=== PATIENT | female | born 1990 | race Caucasian/White ===

== ENCOUNTER → 2017-04-25 13:31 | Outpatient (CLI) | payer MEDICAID, SELFPAY ==
--- NOTE | 2017-04-25 13:35 | US_ITS ---
STUDY: ULTRASOUND OF THE FEMALE PELVIS - COMPLETE REASON FOR EXAM: Female, 26 years old. Pelvic pain. LMP: March 25, 2017. TECHNIQUE: Transabdominal and Transvaginal TECHNICAL QUALITY: Adequate. COMPARISON: None. FINDINGS: The uterus is anteverted and is in a midline position. The uterus measures 6.9 cm x 4.8 cm x 4.4 cm. Normal uterine cervix. The endometrium measures 4.4 mm in thickness, and is heterogeneous (striated). There is no demonstrated endometrial mass. There is evidence of a 1.4 cm x 1.3 cm x 0.7 cm fibroid. I.U.D. - The patient does not have an I.U.D. The right ovary is visualized. The right ovary measures 2.6 cm x 3.2 cm x 2.2 cm. A dominant follicle is seen in the right ovary measuring 8 mm. There is no visualized right adnexal mass or complex lesion. There is normal arterial and normal venous vascularity. The left ovary is visualized. The left ovary measures 3.8 cm x 3.2 cm x 1.7 cm. There is no left ovarian cyst or ovarian mass. There is no visualized left adnexal mass or complex lesion. There is normal arterial and normal venous vascularity. There is no fluid in the cul-de-sac. US/Pelvic (Non ) IMPRESSION: Small uterine fibroid. Electronically Signed: Gilberto Hernandez MD at 15:34 EST Tel [phone], Service support ,
--- NOTE | 2017-04-25 13:35 | US_ITS ---
STUDY: ULTRASOUND OF THE FEMALE PELVIS - COMPLETE REASON FOR EXAM: Female, 26 years old. Pelvic pain. LMP: March 25, 2017. TECHNIQUE: Transabdominal and Transvaginal TECHNICAL QUALITY: Adequate. COMPARISON: None. FINDINGS: The uterus is anteverted and is in a midline position. The uterus measures 6.9 cm x 4.8 cm x 4.4 cm. Normal uterine cervix. The endometrium measures 4.4 mm in thickness, and is heterogeneous (striated). There is no demonstrated endometrial mass. There is evidence of a 1.4 cm x 1.3 cm x 0.7 cm fibroid. I.U.D. - The patient does not have an I.U.D. The right ovary is visualized. The right ovary measures 2.6 cm x 3.2 cm x 2.2 cm. A dominant follicle is seen in the right ovary measuring 8 mm. There is no visualized right adnexal mass or complex lesion. There is normal arterial and normal venous vascularity. The left ovary is visualized. The left ovary measures 3.8 cm x 3.2 cm x 1.7 cm. There is no left ovarian cyst or ovarian mass. There is no visualized left adnexal mass or complex lesion. There is normal arterial and normal venous vascularity. There is no fluid in the cul-de-sac. US/Transvaginal Non- IMPRESSION: Small uterine fibroid. Electronically Signed: Gilberto Hernandez MD at 15:34 EST Tel [phone], Service support ,
== END ==
PROVIDERS: Visit Provider Nurse Practitioner Women's Health
DX: R10.2 Pelvic and perineal pain (principal)
CPT/HCPCS: 76830; 76856; 87491; 87591; 93976

== ENCOUNTER → 2017-04-25 17:57 | Outpatient (CLI) | payer MEDICAID, SELFPAY ==
[2017-04-26 14:33] LABS: Chlamydia Trachomatis by PCR Negative (Negative); Neisserai gonorrhoeae by PCR Negative (Negative); Probe Check PASS; Sample Adequacy Control PASS; Specimen Processing Control PASS
== END ==
PROVIDERS: Visit Provider Nurse Practitioner Women's Health
DX: R10.2 Pelvic and perineal pain (principal)
CPT/HCPCS: 87491; 87591

== ENCOUNTER 2017-08-16 02:43 | Emergency (ER) | payer MEDICAID, SELFPAY ==
[2017-08-16 02:45] VITALS: BP 120/75; PULSE 76; RESP 17; TEMP 36.6; O2SAT 100; BMI 28.0
--- NOTE | 2017-08-16 02:54 | RAD_ITS ---
STUDY: X-RAY - THORACIC SPINE REASON FOR EXAM: Female, 27 years old. Mid and lower thoracic pain after twisting. TECHNIQUE: 3 view(s) of the thoracic spine were obtained. COMPARISON: None. FINDINGS: Normal kyphosis of the thoracic spine. There is no substantial scoliosis. Normal thoracic vertebrae and endplates. Normal disc space heights. The soft tissue structures are unremarkable. RAD/Thoracic Spine 3 Views IMPRESSION: Normal x-ray examination of the thoracic spine. Electronically Signed: Erick Mondragon MD at 3:44 EDT , Service support ,
[2017-08-16] MEDS: Lidocaine 5% Patch 1 PATCH TOPICAL (03:10)
[2017-08-16] MEDS: Ketorolac 30 MG/ML Syringe IM (03:10)
--- NOTE | 2017-08-16 04:01 | ED.DCSUM_ITS ---
- ER Visit Summary Date of Service: 08/16/17 Chief Complaint: Back pain History of Present Illness: The patient is a 27 F presenting for evaluation secondary back pain. Patient states that she had a relatively sudden onset of back pain this evening. She states that it came after an entire evening of playing horse with her young children. She states they were sitting on her back and she was going around on her hands and knees all night and she had a sudden onset of thoracic pain. This does not radiate, is not associated with any sort of bowel or bladder incontinence no fevers no history of IV drug use or recent surgeries. Review of systems otherwise negative. Physical Examination: Vitals: Within normal limits General: Well-nourished well-developed no acute distress Head: Normocephalic atraumatic ENT: Moist mucous membranes Neck: Supple no JVD Cardiovascular: Heart regular rate and rhythm no murmurs Respiratory: Respirations nondistressed, lung sounds clear to auscultation bilaterally Abdominal: Soft, nontender, nondistended, normal bowel sounds, no evidence of abdominal masses or pulsatile mass Back: Normal to inspection, tenderness in the midline of the lower thoracic spine with no step-offs, straight leg raise negative bilaterally Extremities: Nontender, nonedematous, 2+ radial and PT pulses bilaterally symmetric Skin: Normal color no rash Neuro: 5/5 strength hip flexion, knee flexion, knee extension, dorsiflexion, plantarflexion, EHL. Sensation intact over all dermatomes of the lower extremities bilaterally, 2+ patellar and Achilles reflexes bilaterally symmetric , negative clonus bilaterally Test Results: Thoracic x-rays negative per radiology Emergency Department Course and Treatment: Patient presented for evaluation secondary to back pain. X-rays were obtained and were found to be negative. Patient has no red flag signs or symptoms of do not believe the neuro imaging is necessary. She was treated with Toradol and lidocaine and had improvement of her pain. At this point I believe the patient can safely be discharged with a course of Naprosyn and Flexeril. She will follow-up with primary care. Disposition: Discharge Impression: 1. Thoracic back strain This note was generated with [employer] dictation software. It may contain incorrect words, spelling, and punctuation that were not noted in review of the chart prior to signing ED Disposition - Plan for ED Patient: Disposition: Home or Assisted Living Chief Complaint: Back Diagnosis: Thoracic myofascial strain Instructions: ED Sprain Strain Lumbar Prescriptions: Naproxen [Naprosyn] 500 mg PO BID PRN #20 tab Cyclobenzaprine [Flexeril] 10 mg PO TID PRN #20 tab PRN Reason: Muscle Spasm Referrals: Jd Thornton MD [Primary Care Provider] - 10-14 Days if not better
[2017-08-16 04:08] VITALS: BP 109/73; PULSE 65; RESP 17; O2SAT 100
== END 2017-08-16 04:10 | disposition home or self-care (01) ==
PROVIDERS: Emergency Provider Emergency Medicine; Family Provider Internal Medicine; PCP Internal Medicine
DX: S29.012A Strain of muscle and tendon of back wall of thorax, initial encounter (principal); Z79.899 Other long term (current) drug therapy; X58.XXXA Exposure to other specified factors, initial encounter; Y93.89 Activity, other specified; Y92.008 Other place in unspecified non-institutional (private) residence as the place of occurrence of the external cause; Y99.8 Other external cause status
CPT/HCPCS: 72072; 96372; 99282

== ENCOUNTER 2017-11-21 19:16 | Emergency (ER) | payer MEDICAID, SELFPAY ==
[2017-11-21 19:17] VITALS: BP 134/79; PULSE 84; RESP 16; TEMP 37.1; O2SAT 100; BMI 27.1
[2017-11-21 19:29] VITALS: BP 119/81; PULSE 71; RESP 24; O2SAT 99
--- NOTE | 2017-11-21 19:45 | EKG12_ITS ---
Test Reason : CP Blood Pressure : / mmHG Vent. Rate : 070 BPM Atrial Rate : 070 BPM P-R Int : 142 ms QRS Dur : 076 ms QT Int : 394 ms P-R-T Axes : 065 051 053 degrees QTc Int : 425 ms Normal sinus rhythm Normal ECG Confirmed by PAMELA LOW, ANGIE ([id number]), news videotape editor SATISH DARNELL ([id number]) on 11/23/2017 1:14:14 PM Referred By: CESAR Confirmed By:ANGIE SANTIAGO MD
--- NOTE | 2017-11-21 19:45 | RAD_ITS ---
STUDY: X-RAY CHEST REASON FOR EXAM: Female, 27 years old. Chest pain TECHNIQUE: Single frontal view COMPARISON: April 19, 2016 FINDINGS: The lungs are clear and expanded. There is no demonstrated pleural abnormality. Normal size heart. Normal mediastinum and janee. Normal visualized pulmonary arteries. Normal visualized aortic arch and descending thoracic aorta. Normal visualized thoracic spine. Normal visualized ribs, clavicles, and shoulders. There is no demonstrated abnormality of the visualized soft tissue structures of the upper abdomen. RAD/Chest 1 View (Portable) IMPRESSION: Normal x-ray examination of the chest. Electronically Signed: Marcio Jean DO at 20:00 EDT Tel [phone], Service support ,
[2017-11-21 20:01] LABS: Absolute Lymphocyte Count 3.03 X10^3/ul (0.83-4.51); Absolute Neutrophil Count 7.9 X10^3/uL (2.0-7.7); Basophil# 0.02 X10^3/uL; Basophil% 0.2 % (0-1); Eosinophil# 0.14 X10^3/uL; Eosinophils% 1.2 % (0-5); Hematocrit 41.7 % (37-47); Hemoglobin 14.3 g/dl (12.0-15.0); Lymphocyte # 3.03 X10^3/ul (4.0); Lymphocyte % 25.6 % (19-41); Mean Corp Hgb Conc 34.3 g/gl (32-36); Mean Corpuscular Hgb 29.8 pg (27.0-32.0); Mean Corpuscular Volume 86.9 fL (81-99); Mean Platelet Vol. 9.9 fl (6.2-12.0); Monocyte# 0.77 X10^3/uL; Monocyte% 6.5 % (0-10); Neutrophil # 7.87 X10^3/uL (2.7-7.7); Neutrophil % 66.3 % (47-70); Platelet Count 271 K/mm3 (150-450); RBC Distribution Width CV 13.1 % (11.6-14.6); RBC Distribution Width SD 40.6 fl (35.1-43.9); White Blood Count 11.9 K/mm3 (4.4-11.0)
[2017-11-21 20:08] LABS: POSITIVE COUNT NO; POSITIVE DIFFERENTIAL NO; POSITIVE MORPHOLOGY NO
[2017-11-21 20:18] VITALS: O2SAT 100
[2017-11-21 20:20] LABS: Anion Gap 9 (5-15); BUN 8 mg/dL (7-18); BUN/Creat Ratio 9.4 RATIO (10-20); Chloride 105 mmol/L (98-107); Creatinine, Serum 0.85 mg/dL (0.55-1.02); EST Glomerular Filtration Rate 84 mL/min (>60); Est Glom Filt Rate - Afr Amer 102 mL/min (>60); Estimated Creatinine Clearance 77.93 ml/min; Glucose 87 mg/dL (74-106); Potassium 3.8 mmol/L (3.5-5.1); Sodium Level 138 mmol/L (136-145)
[2017-11-21 20:22] VITALS: BP 104/76; PULSE 64; RESP 16; O2SAT 100
[2017-11-21] MEDS: Aspirin 81 MG TAB.CHEW 324 MG PO (20:23)
[2017-11-21 20:29] LABS: D-Dimer Quantitative (DVT/PE) < 0.27 FEU/ug/m (0.27-0.49)
[2017-11-21 20:33] LABS: Pregnancy, Serum, hCG Quali. NEGATIVE Negative (0-9 Nonpreg)
--- NOTE | 2017-11-21 21:04 | ED.DCSUM_ITS ---
- ER Visit Summary Date of Service: 11/21/17 Chief Complaint: Chest pain History of Present Illness: The patient is a 27 F substernal chest pain that feels like squeezing. Associate with nausea. This started about 1 hour prior to arrival. Patient has a history of DVTs. No history of ACS or aortic disease. No fevers. No other GI symptoms. Physical Examination: Afebrile and vital signs unremarkable. Patient is in no acute distress but appears uncomfortable. Heart regular rate and rhythm. Lungs clear bilaterally. Abdomen soft and nontender. Extremities nontender with no edema. Skin appears normal without diaphoresis or pallor. Test Results: EKG showed sinus rhythm at a rate of 70. No sign of acute ischemia or infarction pattern. White count 11.9. BMP normal. Troponin normal. D-dimer normal. test normal. Emergency Department Course and Treatment: Patient treated with aspirin while awaiting results. She was on the monitor and had no further issues. Patient has no risk factors for ACS or dissection. I believe she is appropriate for outpatient follow-up. Will be prescribed Motrin as needed for symptoms. Follow-up with primary care. Return for any new or worsening issues. Treatment Plan: As above Disposition: Discharge Impression: 1. Chest pain unclear etiology This note was generated with [employer] dictation software. It may contain incorrect words, spelling, and punctuation that were not noted in review of the chart prior to signing ED Disposition - Plan for ED Patient: Disposition: Home or Assisted Living Chief Complaint: Chest Pain Instructions: ED Chest Pain Atypical Unkn Cause Prescriptions: Ondansetron [Zofran Odt] 4 mg PO Q8H PRN PRN #10 tab PRN Reason: Nausea Ibuprofen [Motrin] 800 mg PO TID PRN PRN 5 Days #15 tab PRN Reason: Pain Referrals: Jd Thornton MD [Primary Care Provider] -
[2017-11-21 21:13] VITALS: BP 109/78; PULSE 72; RESP 17; O2SAT 99
--- NOTE | 2017-11-21 21:22 | ED.RN ---
PATIENT ORIGINALLY GIVEN PRESCRIPTION FOR ZOFRAN, PT ALLERGIC TO ZOFRAN, SPOKE WITH DR. THOMSON ADVISED PATIENT IF NAUSEA CONDITION CONTINUES TO SEE PCP.
== END 2017-11-21 21:24 | disposition home or self-care (01) ==
LOC: ED 19:55
PROVIDERS: Emergency Provider Emergency Medicine; Family Provider Internal Medicine; PCP Internal Medicine
DX: R07.9 Chest pain, unspecified (principal); Z86.718 Personal history of other venous thrombosis and embolism; Z72.0 Tobacco use
CPT/HCPCS: 71045; 80048; 84484; 84703; 85025; 85379; 93005; 99285; A4216

== ENCOUNTER 2018-02-25 02:08 | Emergency (ER) | payer MEDICAID, SELFPAY ==
[2018-02-25 02:09] VITALS: BP 133/87; PULSE 73; RESP 24; TEMP 36.6; O2SAT 100; BMI 26.8
[2018-02-25] MEDS: Ketorolac 30 MG/ML Syringe IV (03:30)
[2018-02-25 03:31] VITALS: BP 123/76; PULSE 67; RESP 24; O2SAT 99
--- NOTE | 2018-02-25 03:36 | ED.VISSUMM ---
- ER Visit Summary Date of Service: 02/25/18 Chief Complaint: Back pain History of Present Illness: The patient is a [address] Thornton. She reports that February 07 she had her upper teeth pulled. She reports that this was quite a difficult procedure. States that over the past 2 weeks she has had pain at the base of her skull at the bottom of her neck and in the interscapular area. She denies any other trauma. No fall, MVA, or change in activity. She describes as a stabbing pain is 10-10 at worst 9-10 currently. Is worsened with movement of her shoulders or neck. She relieved with ibuprofen. Physical Examination: Vitals: Stable. Afebrile. General: Well-nourished and well-developed. Head: Normocephalic atraumatic. Neck: Supple, no lymphadenopathy. No JVD. Moderate tenderness to palpation in 3 distinct areas. This is from the base of her skull to approximately C2, C5 to approximately C7, and approximately T6-T8. There is no muscular tenderness to palpation. She has decreased range of motion of her neck secondary to pain. Cardiovascular: Regular rate and rhythm. No murmurs. Respiratory: No respiratory distress. Clear to auscultation bilaterally. Abdominal: Soft, nontender, nondistended, normal bowel sounds. No guarding, rebound, or peritoneal signs. Back: Nontender. Extremities: Nontender, no edema. Skin: Normal color, no rash. Neurologic: Alert and oriented ?3. Cranial nerves II through XII are intact. Normal strength and sensation. Psych: Normal affect. Test Results: Nurse ordered EKG is sinus at 74 with no acute changes. Emergency Department Course and Treatment: Patient was treated with Toradol IV. An [facility] report was obtained which show she had one prescription for opiates in the past year. Treatment Plan: Patient will be discharged with [place] and naproxen. Instructed to follow-up with her primary care physician 1 week if not improving. Return to the emergency department for any worsening symptoms. Disposition: To home in improved and stable condition. Impression: 1. Neck pain, acute. 2. Upper back pain, acute. This note was generated with [employer] software. It may contain incorrect words, spelling, and punctuation that were not noted in review of the chart prior to signing ED Disposition - Plan for ED Patient: Disposition: Home or Assisted Living Chief Complaint: Chest Pain Instructions: ED Neck Back Pain General Prescriptions: Hydrocodone Bitart/Apap 5-325 [[place] 5MG-325MG] 1 tablet PO Q4H PRN PRN 2 Days #10 tablet PRN Reason: Pain Naproxen [Naprosyn] 500 mg PO BID #20 tablet Referrals: Jd Thornton MD [Primary Care Provider] - 1 Week if not improving
[2018-02-25] MEDS: HYDROcodone Bitartrate/Apap 5/325 Tablet PO (03:49)
[2018-02-25 03:51] VITALS: BP 112/70; PULSE 69; RESP 20; O2SAT 98
== END 2018-02-25 03:51 | disposition home or self-care (01) ==
PROVIDERS: Emergency Provider Emergency Medicine; Family Provider Internal Medicine; PCP Internal Medicine
DX: M54.2 Cervicalgia (principal); M54.6 Pain in thoracic spine; Z72.0 Tobacco use
CPT/HCPCS: 93005; 96374; 99283; A4216

== ENCOUNTER → 2018-05-07 16:01 | Outpatient (CLI) | payer MEDICAID, SELFPAY ==
[2018-05-07 17:11] LABS: Absolute Lymphocyte Count 2.99 X10^3/ul (0.83-4.51); Absolute Neutrophil Count 5.1 X10^3/uL (2.0-7.7); Basophil# 0.02 X10^3/uL; Basophil% 0.2 % (0-1); Eosinophil# 0.41 X10^3/uL; Eosinophils% 4.3 % (0-5); Hematocrit 41.8 % (37-47); Hemoglobin 13.8 g/dl (12.0-15.0); Lymphocyte # 2.99 X10^3/ul (4.0); Lymphocyte % 31.6 % (19-41); Mean Corpuscular Hgb 29.7 pg (27.0-32.0); Mean Corpuscular Volume 89.9 fL (81-99); Mean Platelet Vol. 9.8 fl (6.2-12.0); Monocyte# 0.88 X10^3/uL; Monocyte% 9.3 % (0-10); Neutrophil # 5.13 X10^3/uL (2.7-7.7); Neutrophil % 54.4 % (47-70); POSITIVE COUNT NO; POSITIVE DIFFERENTIAL NO; POSITIVE MORPHOLOGY NO; Platelet Count 238 K/mm3 (150-450); RBC Distribution Width CV 12.8 % (11.6-14.6); RBC Distribution Width SD 41.6 fl (35.1-43.9); Red Blood Count 4.65 M/mm3 (4.2-5.4); White Blood Count 9.5 K/mm3 (4.4-11.0)
[2018-05-07 17:40] LABS: hCG Titer Quant., Serum < 1 mIU/mL (<9 non-preg)
== END ==
PROVIDERS: Family Provider Internal Medicine; PCP Internal Medicine; Referring Provider Obstetrics & Gynecology; Visit Provider Obstetrics & Gynecology
DX: O20.0 Threatened abortion (principal)
CPT/HCPCS: 36415; 84702; 85025

== ENCOUNTER 2018-12-05 18:57 | Emergency (ER) | payer MEDICAID, SELFPAY ==
[2018-11-22 10:42] VITALS: BMI 31.3
[2018-12-05 18:58] VITALS: BP 124/96; PULSE 89; RESP 16; TEMP 36.7; O2SAT 100; BMI 32.0
--- NOTE | 2018-12-05 19:32 | CT_ITS ---
STUDY: CT ABDOMEN AND PELVIS WITHOUT CONTRAST REASON FOR EXAM: Female, 28 years old. Left flank pain RADIATION DOSAGE (If Supplied By Facility): CTDIvol = ( 8.75 ) mGy, DLP = ( 448.26 ) mGycm TECHNIQUE: Transaxial images were obtained from the dome of the diaphragm to the symphysis pubis without oral contrast, and without intravenous contrast. Sagittal and coronal images were reconstructed. Individualized dose optimization techniques were used for this CT. COMPARISON: October 07, 2016 FINDINGS: The visualized lung bases are unremarkable. The visualized portions of the heart are within normal limits. Normal liver. Normal gallbladder and extrahepatic biliary system. Normal spleen. Normal pancreas. Normal bilateral adrenal glands. Normal right kidney. Normal left kidney. Normal visualized stomach. Normal small intestine. Normal colon. The appendix is visualized and appears normal. Normal abdominal aorta. Normal inferior vena cava. Normal retroperitoneum. Normal urinary bladder. Normal uterus. Normal abdominal wall. Spondylolysis of L5. CT/Abdomen/Pelvis without Cont IMPRESSION: Normal unenhanced CT of the abdomen and pelvis. No urolithiasis. Electronically Signed: Marcio Jean DO at 20:42 EDT Tel [phone], Service support ,
--- NOTE | 2018-12-05 19:34 | ED.DCSUM_ITS ---
- ER Visit Summary Date of Service: 12/05/18 Chief Complaint: Left flank abdominal pain with nausea and vomiting History of Present Illness: The patient is a 28 F history of prior migraine headaches and depression. Presents for 2 and half weeks she is had cold-like symptoms. Yellowish-green sputum. Had left flank pain developed in the last 24 hours now with nausea vomiting. Denies dysuria. Denies hematuria. No history of kidney stones. No vaginal bleeding or discharge states her last menstrual pe riod was approximately a week ago. She denies any abdominal trauma. Physical Examination: Well-appearing young female. Vital signs are stable afebrile. HEENT exam unremarkable. Moist wheeze members. Neck nontender no lymphadenopathy. Lungs clear to auscultation bilaterally. No rales, rhonchi nor wheezing. Clear both anteriorly and posteriorly. Heart regular rate and rhythm rate about 90 no murmur. Abdomen is soft. Nondistended. Normal bowel sounds. No peritoneal signs. She is tender in the left side of her abdomen left lower quadrant. There is no hernia or masses. No signs of obstruction. She is moving all 4 extremities. Calves are nontender. No edema. No cords. Neurologically she is awake alert with no focal motor deficits. Back nontender. No CVA tenderness. Test Results: CBC normal white count 12. Hemoglobin 14. No bands. Chemistries normal. UA normal. Serum test negative. CT flank study without contrast shows no acute abnormality. Read by the radiologist and reviewed by me. Emergency Department Course and Treatment: Patient treated with IV fluids, Phenergan for nausea and Toradol for pain. CT and labs will be obtained. On multiple repeat exams patient is doing well. Her abdomen is benign. Treatment Plan: Fluids and rest. Return if worse. Follow-up with your doctor as needed. Disposition: discharge Impression: Left lower abdominal and flank pain with nausea and vomiting Viral syndrome This note was generated with [employer] dictation software. It may contain incorrect words, spelling, and punctuation that were not noted in review of the chart prior to signing ED Disposition - Plan for ED Patient: Referrals: Chandrika Manrique MD [Primary Care Provider] -
[2018-12-05] MEDS: 0.9% Normal Saline 1,000 ML 1000 ML IV (19:45)
[2018-12-05] MEDS: Ketorolac 30 MG/ML Syringe IV (19:45)
[2018-12-05] MEDS: proMETHazine 25 MG/ML Syringe 12.5 MG IV (19:45)
[2018-12-05 19:50] LABS: Absolute Lymphocyte Count 3.08 X10^3/uL (0.83-4.51); Basophil# 0.04 X10^3/uL; Basophil% 0.3 % (0-1); Eosinophils% 2.5 % (0-5); Hematocrit 43.2 % (37-47); Hemoglobin 14.5 g/dL (12.0-15.0); Lymphocyte # 3.08 X10^3/ul (4.0); Lymphocyte % 25.2 % (19-41); Mean Corp Hgb Conc 33.6 g/dL (32-36); Mean Corpuscular Hgb 29.7 pg (27.0-32.0); Mean Corpuscular Volume 88.5 fL (81-99); Mean Platelet Vol. 9.4 fl (6.2-12.0); Monocyte# 0.81 X10^3/uL; Monocyte% 6.6 % (0-10); NRBC Flagged by Analyzer 0 % (0-5); Neutrophil # 7.96 X10^3/uL (2.7-7.7); Platelet Count 281 K/mm3 (150-450); RBC Distribution Width CV 12.1 % (11.6-14.6); RBC Distribution Width SD 39.3 fl (35.1-43.9); Red Blood Count 4.88 M/mm3 (4.2-5.4); White Blood Count 12.2 K/mm3 (4.4-11.0)
[2018-12-05 20:04] LABS: Internal QC Validated? YES +Cl - CLEAR BKGD; Pregnancy, Serum, hCG Quali. NEGATIVE Negative
[2018-12-05 20:07] LABS: Anion Gap 5 (5-15); BUN 9 mg/dL (7-18); BUN/Creat Ratio 9.6 RATIO (10-20); Calcium,Total 9.1 mg/dL (8.5-10.1); Chloride 107 mmol/L (98-107); Creatinine, Serum 0.94 mg/dL (0.55-1.02); EST Glomerular Filtration Rate 75 mL/min (>60); Est Glom Filt Rate - Afr Amer 90 mL/min (>60); Estimated Creatinine Clearance 69.84 ml/min; Glucose 83 mg/dL (74-106); Potassium 3.8 mmol/L (3.5-5.1); Sodium Level 140 mmol/L (136-145)
[2018-12-05 21:01] LABS: Bacteria 0 SEEN /hpf (None Seen)
[2018-12-05 21:04] LABS: Color, Urine Yellow (Yellow); Glucose, Dipstick Normal (Normal); Ketone-Dipstick 5 mg/dl (Negative); Leukocyte Esterase-Dipstick Negative /ul (Negative); Nitrite-Dipstick Negative (Negative); Occult Blood-Urine Negative /ul (Negative); Protein-Dipstick 15 mg/dl (Negative); Urine Bilirubin Dipstick Negative (Negative); Urine Clarity Cloudy (Clear); Urine Urobilinogen Normal (Normal)
[2018-12-05 21:14] LABS: Mucous, Urine 3+ /hpf (<or=2+)
[2018-12-05 21:16] LABS: Red Blood Cells-Urine 0-5 SEEN /hpf (0-5); Squamous Epithelial Cells - UA 0-5 SEEN /hpf (5-10); White Blood Cells 0-5 SEEN /hpf (0-5)
--- NOTE | 2018-12-05 22:40 | ED.DEP ---
ED Disposition - Plan for ED Patient: Disposition: Home or Assisted Living Instructions: VOMITING (5y-Adult) Prescriptions: Ondansetron [Zofran Odt] 4 mg PO Q8H PRN PRN #7 tab PRN Reason: Nausea Prescription Printed Referrals: Chandrika Manrique MD [Primary Care Provider] - 1-2 Days if not improving Additional Instructions: Fluids and rest. Zofran as needed for nausea. Tylenol and/or Motrin for follow-up with your doctor if not improving return if feeling worse.
[2018-12-05 22:47] VITALS: BP 107/71; PULSE 56; RESP 16; O2SAT 100
== END 2018-12-05 22:48 | disposition home or self-care (01) ==
PROVIDERS: Emergency Provider Emergency Medicine; Family Provider Internal Medicine; PCP Internal Medicine
DX: R11.2 Nausea with vomiting, unspecified (principal); R10.9 Unspecified abdominal pain; R10.30 Lower abdominal pain, unspecified; B34.9 Viral infection, unspecified; F32.9 Major depressive disorder, single episode, unspecified; Z79.899 Other long term (current) drug therapy; Z87.891 Personal history of nicotine dependence
CPT/HCPCS: 74176; 80048; 81001; 84703; 85025; 96361; 96374; 96375; 99285; J7030; A4216

== ENCOUNTER 2019-05-01 16:32 | Emergency (ER) | payer SELFPAY ==
[2019-05-01 16:33] VITALS: BP 109/68; PULSE 110; RESP 16; TEMP 37; O2SAT 99; BMI 32.0
[2019-05-01 17:45] VITALS: BP 115/58; PULSE 88; RESP 20; O2SAT 100; O2SAT 98
[2019-05-01] MEDS: Ibuprofen 600 MG Tablet PO (18:15)
--- NOTE | 2019-05-01 18:19 | RAD_ITS ---
STUDY: X-RAY CHEST REASON FOR EXAM: Female, 28 years old. FLU SX ,COUGH, SOB, FEVER, HEADACHE TECHNIQUE: PA and lateral views of the chest. COMPARISON: 11/21/2017. FINDINGS: Cardiac silhouette unremarkable. Pulmonary vascularity unremarkable. Aorta unremarkable. No focal airspace opacities. No pleural effusions. Upper abdomen unremarkable. Osseous structures intact. No pneumothorax. RAD/Chest PA and Lateral IMPRESSION: No acute cardiopulmonary findings Electronically Signed: Nik Hankins, at 19:18 EST Tel , Service support ,
--- NOTE | 2019-05-01 19:27 | ED.VISSUMM ---
- ER Visit Summary Date of Service: 05/01/19 Chief Complaint: Cough, chest pain, headache History of Present Illness: The patient is a 28 F who presents with the above symptoms. Started yesterday. She states she started with a cough. It is productive of yellow sputum. She has a sore throat and a headache as well. Her pain in her chest is worse with breathing and coughing. She took nothing for this at home. She states that her temperature was 104.2 ?F 3 hours ago at home. She did not get a flu shot this year. Unknown sick contacts. She is a smoker. Physical Examination: Vital signs reviewed. HEENT exam does show some posterior oropharyngeal erythema. TMs are clear. Heart is regular rate and rhythm without murmurs. Lungs are clear to auscultation. Her chest is tender in the right parasternal area. Abdomen is soft and nontender. Extremities reveal no edema. Skin exam normal. Neurologic exam normal. Test Results: Chest x-ray is negative. Influenza test is positive for influenza A Emergency Department Course and Treatment: The patient was given ibuprofen which did help her chest discomfort. She is still had a headache so I gave her Toradol. She appears to have influenza. I will treat her with Tamiflu. She will increase her hydration at home. She also use hoxh-ioc-cqaxitc medications. She will follow-up with her PCP. Treatment Plan: [] Disposition: Discharge Impression: Influenza This note was generated with [employer] dictation software. It may contain incorrect words, spelling, and punctuation that were not noted in review of the chart prior to signing ED Disposition - Plan for ED Patient: Disposition: Home or Assisted Living Instructions: INFLUENZA (Adult) Prescriptions: Oseltamivir Phosphate [Tamiflu] 75 mg PO BID #10 cap Transmission Status: Pending to [id number] Referrals: Chandrika Manrique MD [Primary Care Provider] - Additional Instructions: Your prescription was electronically transmitted to [facility]
[2019-05-01] MEDS: Ketorolac 60 MG/2 ML Vial IM (19:35)
[2019-05-01 19:38] VITALS: BP 114/52; PULSE 78; RESP 14; O2SAT 99
== END 2019-05-01 19:39 | disposition home or self-care (01) ==
PROVIDERS: Emergency Provider Emergency Medicine; PCP Internal Medicine
DX: J09.X2 Influenza due to identified novel influenza A virus with other respiratory manifestations (principal); F17.200 Nicotine dependence, unspecified, uncomplicated; K21.9 Gastro-esophageal reflux disease without esophagitis; F32.9 Major depressive disorder, single episode, unspecified; F41.9 Anxiety disorder, unspecified; Z79.899 Other long term (current) drug therapy
CPT/HCPCS: 71046; 87804; 96372; 99282

== ENCOUNTER 2019-09-08 01:44 | Emergency (ER) | payer SELFPAY ==
[2019-09-08 01:44] VITALS: BP 144/80; PULSE 93; RESP 18; TEMP 36.9; O2SAT 99
[2019-09-08 01:46] VITALS: BP 144/80; PULSE 93; RESP 18; TEMP 36.9; O2SAT 99
--- NOTE | 2019-09-08 01:57 | ED.DCSUM_ITS ---
- ER Visit Summary Date of Service: 09/08/19 Chief Complaint: Suprapubic abdominal pain History of Present Illness: The patient is a 29 F history of PTSD, anxiety and depression. Currently not on medications. States she has no insurance. She is had a prior . States for 1 to 2 weeks has had suprapubic abdominal pain with nausea no vomiting. Denies any diarrhea constipation. Denies any vaginal bleeding or discharge. States her last menstrual period was approximately 1 month ago. Denies any fever or chills. Denies any dysuria. Has any abdominal trauma. Physical Examination: Young female anxious vital signs stable afebrile. H EENT exam unremarkable. Moist because membranes. Neck nontender no lymphadenopathy. Lungs clear to auscultation bilaterally. Heart regular rhythm no murmur. Rate about 90. Abdomen soft. Nondistended. Normal bowel sounds no peritoneal signs. Both right upper and right lower quadrants are nontender. No McBurney's point tenderness. No Trevizo sign. No hernias or masses. No signs of obstruction. Left upper and left lower quadrants are unremarkable. She is moving all 4 extremities. No edema. Back nontender. Neurologically she is awake and alert. Test Results: Serum test negative. Urinalysis: Blood on the macro. Negative nitrates, negative white cells and rare bacteria. Emergency Department Course and Treatment: Patient has suprapubic pain. This does not appear to be appendicitis but she said the pain for 1 and half to 2 weeks. She is not tender in the right lower quadrant. Obtain a urinalysis and serum test. She will be treated with morphine for pain and Phenergan for nausea. Repeat exam patient is doing well after receiving IV morphine and Phenergan. Pain is resolved. Abdomen is benign. Again no right upper or right lower quadrant pain. Treatment Plan: Follow-up with her [employer]ANT Dr. Fermin. Tylenol Motrin for pain. Disposition: Discharge Impression: Supra Pubic pelvic and abdominal pain of uncertain etiology This note was generated with [employer] dictation software. It may contain incorrect words, spelling, and punctuation that were not noted in review of the chart prior to signing ED Disposition - Plan for ED Patient: Referrals: Chandrika Manrique MD [Primary Care Provider] -
[2019-09-08] MEDS: Morphine 4 MG/ML Syringe IV (02:04)
[2019-09-08] MEDS: proMETHazine 25 MG/ML Syringe 12.5 MG IV (02:04)
[2019-09-08 02:10] LABS: Internal QC Validated? YES +Cl - CLEAR BKGD; Pregnancy, Serum, hCG Quali. NEGATIVE Negative
[2019-09-08 02:26] LABS: Mucous, Urine 0 SEEN /hpf (<or=2+)
[2019-09-08 02:30] LABS: Color, Urine Yellow (Yellow); Glucose, Dipstick Normal (Normal); Ketone-Dipstick Negative (Negative); Leukocyte Esterase-Dipstick Negative /ul (Negative); Nitrite-Dipstick Negative (Negative); Occult Blood-Urine 25 /ul (Negative); Protein-Dipstick 15 mg/dl (Negative); Specific Gravity, Urine 1.025 (1.002-1.030); Urine Bilirubin Dipstick Negative (Negative); Urine Clarity Clear (Clear); Urine Urobilinogen Normal (Normal)
[2019-09-08 02:37] LABS: Bacteria RARE /hpf (None Seen); Red Blood Cells-Urine 0-5 SEEN /hpf (0-5); Squamous Epithelial Cells - UA 5-10 SEEN /hpf (5-10); White Blood Cells 0-5 SEEN /hpf (0-5)
--- NOTE | 2019-09-08 03:49 | DCINST.ED_ITS ---
ED Disposition - Plan for ED Patient: Disposition: Home or Assisted Living Instructions: ED Pelvic Pain [facility] Referrals: Krystal Merritt MD [STAFF PHYSICIAN] - As soon as possible Additional Instructions: Follow-up with your MACHINE TOOL TECHNICIAN INSTRUCTOR for further evaluation and possible pelvic ultrasound. Tylenol and Motrin for pain.
[2019-09-08 03:55] VITALS: PULSE 82; RESP 16; O2SAT 99
== END 2019-09-08 04:24 | disposition home or self-care (01) ==
PROVIDERS: Emergency Provider Emergency Medicine; PCP Internal Medicine
DX: R10.2 Pelvic and perineal pain (principal); Z72.0 Tobacco use
CPT/HCPCS: 81001; 84703; 96374; 96375; 99283; A4216

== ENCOUNTER 2019-09-18 18:31 | Emergency (ER) | payer SELFPAY ==
[2019-09-18 18:32] VITALS: BP 139/87; PULSE 78; RESP 22; TEMP 36.6; BMI 31.2
[2019-09-18 18:34] VITALS: BP 139/87; PULSE 78; RESP 16; TEMP 36.6
--- NOTE | 2019-09-18 18:52 | CT_ITS ---
STUDY: CT ABDOMEN AND PELVIS WITH CONTRAST REASON FOR EXAM: Female, 29 years old. LOWER ABD PAIN W/ NAUSEA AND VOMITING. WAS SEEN LAST MONDAY FOR SAME. RADIATION DOSAGE (If Supplied By Facility): CTDIvol = ( 14.985 ) mGy, DLP = ( 804.19 ) mGycm TECHNIQUE: Transaxial images were obtained from the dome of the diaphragm to the symphysis pubis without oral contrast. Oral and amp; IV Gastrografin and amp; 100mL Isovue-[id number] was administered. Sagittal and coronal images were reconstructed. Individualized dose optimization techniques were used for this CT. COMPARISON: 12/05/2018. FINDINGS: Lung bases are clear. Heart size is normal. Mild diffuse fatty infiltration. No focal lesion. The gallbladder is unremarkable. The spleen and pancreas are unremarkable. The adrenal glands are normal. The kidneys are unremarkable. No stones or hydronephrosis. The aorta is normal in caliber. There is no free fluid, free air, or organized collection. No bowel obstruction or inflammatory change. Normal appendix. Urinary bladder is unremarkable. Uterus and adnexae are unremarkable. Normal abdominal wall. Bilateral L5 spondylolysis. No spondylolisthesis. CT/Abdomen/Pelvis WITH Contrast IMPRESSION: 1. No acute findings. 2. Hepatic steatosis. 3. Bilateral L5 spondylolysis. Electronically Signed: Veronika Stevenson MD at 20:56 EDT Tel , Service support ,
--- NOTE | 2019-09-18 18:53 | ED.DCSUM_ITS ---
History of Present Illness Chief Complaint: Abd Pain Informant: Patient Onset: Days - 10 days Context: Gradual Onset Timing: Waxes and wanes Current Severity: Severe Maximum Severity: Severe Narrative: Patient present secondary to severe lower abdominal pain. She points to the suprapubic area. She states it feels like it radiates to her back around to the suprapubic area. She has been trying to drink a lot of water. She denies fever or chills. She denies dysuria. Patient was seen in the ER on the fifth where urinalysis and urine test were negative. She had difficulty getting a hold of her [employer] for follow-up. She was able to reach her tonight by phone and she is advised to come to the ER. - Past Medical History (1) Anxiety and depression Status: Chronic (2) GERD (gastroesophageal reflux disease) Status: Chronic (3) Migraines Status: Chronic (4) Hypothyroid Status: Chronic Past Medical History - Allergies and Home Meds Allergies/Adverse Reactions: Allergies vancomycin Allergy (Severe, Verified 05/01/19 16:36) Shortness of breath clindamycin Allergy (Verified 05/01/19 16:36) Shortness of breath ondansetron HCl [From Zofran (as hydrochloride)] Allergy (Verified 05/01/19 16:36) Swelling Primary Care Physician: Chandrika Manrique MD [Primary Care Provider] - Doctors: Dr. Fermin Prior records reviewed: Yes Lives: With Family Smoking Status: Current every day smoker Review of Systems General: Denies: Chills, Fever Eyes: Denies: Visual changes - bilaterally ENT: Denies: Bilateral ear pain Cardiovascular: Denies: Chest pain Respiratory: Denies: Dyspnea, Cough Gastrointestinal: Reports: Abdominal pain, Nausea, Vomiting. Denies: Diarrhea Genitourinary: Denies: Dysuria, Hematuria Musculoskeletal: Denies: Swelling, Extremity Pain Skin: Denies: Rash Neurological: Denies: Headache Hematologic: Denies: Easy bruising Allergy: Denies: Uticaria Physical Exam Vital Signs/Narrative: Vital Signs Temp Pulse Resp BP 09/18/19 18:34 97.9 F 78 16 139/87 H 09/18/19 18:32 97.9 F 78 22 H 139/87 H Inital Vital Signs reviewed: Yes General: Well nourished, Well developed Head: Normocephalic ENT: Moist mucous membranes Neck: Supple Cardiovascular: Regular rate, Regular rhythm Respiratory: No distress, CTA bilaterally Abdomen: Soft, Tender - Suprapubic tenderness to palpation., Hypoactive bowel sounds. Negative for: Guarding, Rebound tenderness Extremities: Nontender Skin: Normal color Neurological: Alert, Oriented x3 Psychological: - - Anxious Diagnostic/Tx/Re-eval Impressions Abdomen/Pelvis CT 09/18/19 18:52 IMPRESSION: 1. No acute findings. 2. Hepatic steatosis. 3. Bilateral L5 spondylolysis. Electronically Signed: Veronika Stevenson MD at 20:56 EDT Tel , Service support , Transvaginal US 09/18/19 21:03 IMPRESSION: 1. Normal female pelvis. Electronically Signed: Veronika Stevenson MD at 22:04 EDT Tel , Service support , 09/18/19 18:52 Abdomen/Pelvis WITH Contrast [CT] Stat 09/18/19 21:03 Transvaginal Non- [US] Stat Laboratory Results 09/18/19 09/18/19 09/18/19 19:05 19:05 19:05 WBC 11.8 H RBC 4.73 Hgb 14.4 Hct 42.2 MCV 89.2 MCH 30.4 MCHC 34.1 RDW Std Deviation 39.0 RDW Coeff of [place] 11.9 Plt Count 286 MPV 9.8 Immature Gran % (Auto) 0.300 Neut % (Auto) 62.3 Lymph % (Auto) 28.3 [place] % (Auto) 6.8 Eos % (Auto) 2.0 Baso % (Auto) 0.3 Absolute Neuts (auto) 7.3 Absolute Lymphs (auto) 3.34 Nucleated RBC % 0 Sodium 139 Potassium 3.7 Chloride 107 Carbon Dioxide 27.0 Anion Gap 5 BUN 9 Creatinine 0.90 Estim Creat Clear Calc 68.97 Est GFR (MDRD) Af Amer 94 Est GFR (MDRD) Non-Af 78 BUN/Creatinine Ratio 10.0 Glucose 86 Calcium 8.7 Serum , Qual NEGATIVE Urine Color Urine Clarity Urine pH Ur Specific [place] Urine Protein Urine Glucose (UA) Urine Ketones Urine Occult Blood Urine Nitrite Urine Bilirubin Urine Urobilinogen Ur Leukocyte Esterase Urine RBC Urine WBC Ur Squamous Epith Cells Urine Bacteria Urine Mucus 09/18/19 21:02 WBC RBC Hgb Hct MCV MCH MCHC RDW Std Deviation RDW Coeff of [place] Plt Count MPV Immature Gran % (Auto) Neut % (Auto) Lymph % (Auto) [place] % (Auto) Eos % (Auto) Baso % (Auto) Absolute Neuts (auto) Absolute Lymphs (auto) Nucleated RBC % Sodium Potassium Chloride Carbon Dioxide Anion Gap BUN Creatinine Estim Creat Clear Calc Est GFR (MDRD) Af Amer Est GFR (MDRD) Non-Af BUN/Creatinine Ratio Glucose Calcium Serum , Qual Urine Color Yellow Urine Clarity Clear Urine pH 6.5 Ur Specific [place] 1.010 Urine Protein Negative Urine Glucose (UA) Normal Urine Ketones Negative Urine Occult Blood Negative Urine Nitrite Negative Urine Bilirubin Negative Urine Urobilinogen Normal Ur Leukocyte Esterase Negative Urine RBC 0 SEEN Urine WBC 0 SEEN Ur Squamous Epith Cells 0-5 SEEN Urine Bacteria 0 SEEN Urine Mucus 0 SEEN - Medical Decision Making Patient was given morphine and Phenergan here for pain control. After CT returned unremarkable she was given a dose of Toradol. Blood work, urine, and imaging studies are all unremarkable with no definitive cause for her pain. She will be given a few tabs of [place] for home to help control pain. Dr. Fermin's office is to contact her tomorrow and she will follow-up closely. ED Disposition - Plan for ED Patient: Disposition: Home or Assisted Living Diagnosis: Pelvic pain Instructions: ED Abdominal Pain Unkn Cause Fem Prescriptions: Hydrocodone Bitart/Apap 5-325 [[place] 5MG-325MG] 1 tablet PO Q6H PRN PRN 3 Days #10 tablet PRN Reason: Pain Transmission Status: Sent to [facility] Referrals: Chandrika Manrique MD [Primary Care Provider] - Krystal Fermin MD [STAFF PHYSICIAN] - As soon as possible
[2019-09-18] MEDS: proMETHazine 25 MG/ML Syringe 6.25 MG IV (19:03)
[2019-09-18] MEDS: Morphine 4 MG/ML Syringe IV (19:04)
[2019-09-18] MEDS: 0.9% Normal Saline 1,000 ML 150 ML IV (19:10)
[2019-09-18 19:30] LABS: Anion Gap 5 (5-15); BUN 9 mg/dL (7-18); Calcium,Total 8.7 mg/dL (8.5-10.1); Chloride 107 mmol/L (98-107); EST Glomerular Filtration Rate 78 mL/min (>60); Est Glom Filt Rate - Afr Amer 94 mL/min (>60); Estimated Creatinine Clearance 68.97 ml/min; Glucose 86 mg/dL (74-106); Potassium 3.7 mmol/L (3.5-5.1); Sodium Level 139 mmol/L (136-145)
[2019-09-18 19:47] LABS: Absolute Lymphocyte Count 3.34 X10^3/uL (0.83-4.51); Absolute Neutrophil Count 7.3 X10^3/uL (2.0-7.7); Basophil# 0.04 X10^3/uL; Basophil% 0.3 % (0-1); Eosinophil# 0.24 X10^3/uL; Hematocrit 42.2 % (37-47); Hemoglobin 14.4 g/dL (12.0-15.0); Lymphocyte # 3.34 X10^3/ul (4.0); Lymphocyte % 28.3 % (19-41); Mean Corp Hgb Conc 34.1 g/dL (32-36); Mean Corpuscular Hgb 30.4 pg (27.0-32.0); Mean Corpuscular Volume 89.2 fL (81-99); Mean Platelet Vol. 9.8 fl (6.2-12.0); Monocyte% 6.8 % (0-10); NRBC Flagged by Analyzer 0 % (0-5); Neutrophil # 7.34 X10^3/uL (2.7-7.7); Neutrophil % 62.3 % (47-70); Platelet Count 286 K/mm3 (150-450); RBC Distribution Width CV 11.9 % (11.6-14.6); Red Blood Count 4.73 M/mm3 (4.2-5.4); White Blood Count 11.8 K/mm3 (4.4-11.0)
[2019-09-18 20:05] LABS: Internal QC Validated? YES +Cl - CLEAR BKGD; Pregnancy, Serum, hCG Quali. NEGATIVE Negative
--- NOTE | 2019-09-18 21:03 | US_ITS ---
STUDY: ULTRASOUND OF THE FEMALE PELVIS - COMPLETE REASON FOR EXAM: Female, 29 years old. PELVIC PAIN - X WEEKS HX C SECTION TECHNIQUE: Transabdominal, transvaginal. TECHNICAL QUALITY: Adequate. COMPARISON: None. FINDINGS: Uterus is normal in size and echogenicity measuring 9 x 3.2 x 4.7 cm. No uterine mass. Endometrial thickness is normal measuring 5 mm. Right ovary is normal in size and echogenicity, measuring 3.5 x 1.9 x 3 cm. No mass or dominant cyst. Arterial and venous flow are documented. Left ovary is normal in size and echogenicity, measuring 3.3 x 1.8 x 2.4 cm. No evidence of mass. Dominant follicle measures 1.4 cm. Arterial and venous flow are documented. No free fluid in the cul-de-sac. US/Transvaginal Non- IMPRESSION: 1. Normal female pelvis. Electronically Signed: Veronika Stevenson MD at 22:04 EDT Tel , Service support ,
[2019-09-18 21:09] LABS: Bacteria 0 SEEN /hpf (None Seen); Mucous, Urine 0 SEEN /hpf (<or=2+); Red Blood Cells-Urine 0 SEEN /hpf (0-5); White Blood Cells 0 SEEN /hpf (0-5)
[2019-09-18 21:34] LABS: Color, Urine Yellow (Yellow); Glucose, Dipstick Normal (Normal); Ketone-Dipstick Negative (Negative); Leukocyte Esterase-Dipstick Negative /ul (Negative); Nitrite-Dipstick Negative (Negative); Occult Blood-Urine Negative /ul (Negative); Protein-Dipstick Negative (Negative); Urine Bilirubin Dipstick Negative (Negative); Urine Clarity Clear (Clear); Urine Urobilinogen Normal (Normal); Urine pH 6.5 (5.0 - 8.0)
[2019-09-18 21:43] LABS: Squamous Epithelial Cells - UA 0-5 SEEN /hpf (5-10)
[2019-09-18 22:00] VITALS: BP 117/85; PULSE 53; RESP 16; O2SAT 99
[2019-09-18] MEDS: HYDROcodone Bitartrate/Apap 5/325 Tablet PO (22:32)
[2019-09-18] MEDS: Ketorolac 30 MG/ML Syringe IV (22:32)
[2019-09-18 22:34] VITALS: BP 113/79; PULSE 54; RESP 16; O2SAT 100
== END 2019-09-18 22:44 | disposition home or self-care (01) ==
PROVIDERS: Emergency Provider Emergency Medicine; PCP Internal Medicine
DX: R10.2 Pelvic and perineal pain (principal); K21.9 Gastro-esophageal reflux disease without esophagitis; F17.200 Nicotine dependence, unspecified, uncomplicated
CPT/HCPCS: 74177; 76830; 80048; 81001; 84703; 85025; 93976; 96361; 96374; 96375; 99284; J7030; Q9967; A4216

== ENCOUNTER 2019-12-22 04:10 | Emergency (ER) | payer SELFPAY ==
[2019-12-22 04:12] VITALS: BP 151/104; PULSE 95; RESP 16; TEMP 36.5; O2SAT 100; BMI 30.2
--- NOTE | 2019-12-22 04:13 | EKG12_ITS ---
Test Reason : CP Blood Pressure : / mmHG Vent. Rate : 082 BPM Atrial Rate : 082 BPM P-R Int : 140 ms QRS Dur : 076 ms QT Int : 378 ms P-R-T Axes : 080 072 087 degrees QTc Int : 441 ms Normal sinus rhythm Normal ECG Confirmed by EDINSON LOW, TOSHIA ([id number]), desk editor ANANDA FLORES ([id number]) on 12/24/2019 8:19:55 AM Referred By: SPENSER Confirmed By:TOSHIA NEVES MD
--- NOTE | 2019-12-22 04:14 | ED.VIS.CHEST ---
History of Present Illness Chief Complaint: Chest Pain Informant: Patient Onset: Hours - about 20 or so Activity at onset: - - awoke w/ sx Quality: Heaviness - like something sitting on my chest Location: Substernal - w/ radiation into upper mid-back Current Severity: Moderate Maximum Severity: Moderate Worsened By: - - lying supine. Not Worsened By: Breathing Relieved By: Nothing Associated Symptoms: Nausea, - - anxiety. Negative for: Vomiting, Diaphoresis, Dyspnea, Cough, Fever, Lightheadedness, Palpitations Narrative: Patient states she woke up with this yesterday morning and it has been continuous, worsening tonight since she has been lying down. She states she had some acid reflux earlier in life, she would trigger it with spicy foods, she has had none of that lately. She would usually then quiet that down with milk or something. She denies being around anyone with COVID-19 lately and answers no to all of the screening questions. No recent leg pain or swelling, no pleuritic component, no recent URIs. Prior Similar Symptoms: No Recent Illness/Hospitalization: No CVD Risk Factors: Smoking. Negative for: Hypertension, Diabetes, Hypercholesterolemia, Family History 1' </=55 PE Risk Factors: Negative for: Recent Travel/Surgery, Recenet Immobilization, Prior DVT or PE, Cancer, OCP + Smoking + >/=35 - Past Medical History (1) Anxiety and depression Status: Chronic (2) GERD (gastroesophageal reflux disease) Status: Chronic (3) Hypothyroid Status: Chronic (4) Migraines Status: Chronic Past Medical History - Allergies and Home Meds Allergies/Adverse Reactions: Allergies vancomycin Allergy (Severe, Verified 12/22/19 04:16) Shortness of breath clindamycin Allergy (Verified 12/22/19 04:16) Shortness of breath ondansetron HCl [From Zofran (as hydrochloride)] Allergy (Verified 12/22/19 04:16) Swelling Primary Care Physician: Chandrika Manrique MD [Primary Care Provider] - Lives: With Family Smoking Status: Current every day smoker Review of Systems General: Denies: Chills, Fever, Sweats Eyes: Denies: Visual changes - bilaterally, Diplopia ENT: Denies: Rhinorrhea, Sore throat Cardiovascular: Reports: Chest pain. Denies: Palpitations Respiratory: Denies: Dyspnea, Cough, Dyspnea on exertion Gastrointestinal: Reports: Nausea. Denies: Abdominal pain, Vomiting, Diarrhea, Melena, Hematochezia Genitourinary: Denies: Dysuria, Hematuria, Frequency Musculoskeletal: Reports: Back pain. Denies: Myalgias, Swelling, Extremity Pain Skin: Denies: Rash, Wounds Neurological: Denies: Headache, Weakness, Numbness Psych: Reports: Anxiety. Denies: Suicidal thoughts Physical Exam Vital Signs/Narrative: Vital Signs Temp Pulse Resp BP Pulse Ox 12/22/19 04:12 97.7 F L 95 16 151/104 H 100 Inital Vital Signs reviewed: Yes General: Well nourished, Well developed, No Acute Distress Head: Normocephalic, Atraumatic Eyes: Perrl, EOMI ENT: Moist mucous membranes, No rhinorrhea Neck: Supple, Nontender Cardiovascular: Regular rate, Regular rhythm, No murmurs Respiratory: No distress, CTA bilaterally, Chest nontender Abdomen: Soft, Nontender, Nondistended, Normal bowel sounds Back: Nontender, Normal Inspection. Negative for: CVA tenderness Extremities: Nontender, No edema. Negative for: Calf Tenderness Skin: Normal color, No rash, No Trauma Neurological: Alert, Oriented x3, Cranial nerves II-XII grossly intact, Normal Strength, Normal Sensation Psychological: Normal Mood, - - mildly anxious Diagnostic/Tx/Re-eval Laboratory Results 12/22/19 12/22/19 04:18 04:18 WBC 12.1 H RBC 4.92 Hgb 14.9 Hct 44.1 MCV 89.6 MCH 30.3 MCHC 33.8 RDW Std Deviation 39.3 RDW Coeff of [place] 12.0 Plt Count 260 MPV 9.6 Immature Gran % (Auto) 0.200 Neut % (Auto) 56.5 Lymph % (Auto) 33.7 [place] % (Auto) 6.5 Eos % (Auto) 2.8 Baso % (Auto) 0.3 Absolute Neuts (auto) 6.8 Absolute Lymphs (auto) 4.06 Nucleated RBC % 0 Sodium 139 Potassium 3.1 L Chloride 105 Carbon Dioxide 29.0 Anion Gap 5 BUN 11 Creatinine 1.01 Estim Creat Clear Calc 64.42 Est GFR (MDRD) Af Amer 83 Est GFR (MDRD) Non-Af 68 BUN/Creatinine Ratio 10.9 Glucose 100 Calcium 9.0 Troponin I < 0.015 - Rhythm Strip Rhythm Strip: Sinus Rhythm Rate: 82 Ectopy: None - EKG Initial EKG Interpretation: Sinus Rhythm, No Acute Injury Pattern - normal EKG Treatment: GI Cocktail - Medical Decision Making Labs are unremarkable. It is noted that her potassium was 3.1, however I suspect this is due to electrolyte shifting as a result of the patient hyperventilating since she was fairly anxious upon arrival, providing an acute respiratory alkalosis which resolved after treatment. For this reason potassium was not replaced, as I do not think it was necessary or indicated. On reexamination after GI cocktail, she states that the chest heaviness is gone but now she feels sore in her ribs, she feels like there is a pit in my stomach as she points to her epigastrium, and on reexamination she is slightly tender in her epigastrium only. Negative Trevizo sign. She is anxious. I reassured her, none of her discomfort is cardiac in etiology, her labs confirm this, and I will give her some Phenergan and PPI both here and as prescriptions to use at home as needed until she follows up with her doctor. We discussed reasons to return, as well as symptoms of a bleeding ulcer for which she should return as well. She is comfortable with that plan. ED Disposition - Plan for ED Patient: Disposition: Home or Assisted Living Diagnosis: Chest pain due to gastrointestinal reflux disease Instructions: ED Chest Pain NonCardiac Prescriptions: proMETHazine tablet [Phenergan] 25 mg PO Q6H PRN PRN #10 tab PRN Reason: Nausea Transmission Status: Pending to [facility] Pantoprazole Sodium [Protonix] 40 mg PO DAILY #14 tab Transmission Status: Pending to [facility] Referrals: Chandrika Manriqeu MD [Primary Care Provider] - 1 Week if not improving
[2019-12-22] MEDS: Mag Hydrox/Al Hydrox/Simeth 30 ML UDC PO (04:20)
[2019-12-22 04:23] LABS: Absolute Lymphocyte Count 4.06 X10^3/uL (0.83-4.51); Absolute Neutrophil Count 6.8 X10^3/uL (2.0-7.7); Basophil# 0.04 X10^3/uL; Basophil% 0.3 % (0-1); Eosinophil# 0.34 X10^3/uL; Eosinophils% 2.8 % (0-5); Hematocrit 44.1 % (37-47); Hemoglobin 14.9 g/dL (12.0-15.0); Lymphocyte # 4.06 X10^3/ul (4.0); Lymphocyte % 33.7 % (19-41); Mean Corp Hgb Conc 33.8 g/dL (32-36); Mean Corpuscular Hgb 30.3 pg (27.0-32.0); Mean Corpuscular Volume 89.6 fL (81-99); Mean Platelet Vol. 9.6 fl (6.2-12.0); Monocyte# 0.78 X10^3/uL; Monocyte% 6.5 % (0-10); NRBC Flagged by Analyzer 0 % (0-5); Neutrophil # 6.81 X10^3/uL (2.7-7.7); Neutrophil % 56.5 % (47-70); Platelet Count 260 K/mm3 (150-450); RBC Distribution Width SD 39.3 fl (35.1-43.9); Red Blood Count 4.92 M/mm3 (4.2-5.4); White Blood Count 12.1 K/mm3 (4.4-11.0)
[2019-12-22 04:51] LABS: Anion Gap 5 (5-15); BUN 11 mg/dL (7-18); BUN/Creat Ratio 10.9 RATIO (10-20); Chloride 105 mmol/L (98-107); Creatinine, Serum 1.01 mg/dL (0.55-1.02); EST Glomerular Filtration Rate 68 mL/min (>60); Est Glom Filt Rate - Afr Amer 83 mL/min (>60); Estimated Creatinine Clearance 64.42 ml/min; Glucose 100 mg/dL (74-106); Potassium 3.1 mmol/L (3.5-5.1); Sodium Level 139 mmol/L (136-145)
[2019-12-22] MEDS: proMETHazine 25 MG Tablet PO (05:05)
[2019-12-22] MEDS: Pantoprazole Sodium 40 MG Tablet PO (05:05)
[2019-12-22 05:06] VITALS: BP 120/83; PULSE 68; RESP 16; O2SAT 98
== END 2019-12-22 05:08 | disposition home or self-care (01) ==
PROVIDERS: Emergency Provider Emergency Medicine; PCP Internal Medicine
DX: K21.9 Gastro-esophageal reflux disease without esophagitis (principal); R07.9 Chest pain, unspecified; F17.200 Nicotine dependence, unspecified, uncomplicated
CPT/HCPCS: 80048; 84484; 85025; 93005; 99285; A4216

== ENCOUNTER 2020-06-04 20:26 | Emergency (ER) | payer SELFPAY ==
[2020-06-04 20:27] VITALS: BP 142/75; PULSE 60; RESP 16; TEMP 37.1; O2SAT 97; BMI 29.2
--- NOTE | 2020-06-04 20:38 | ED.VISSUMM ---
- ER Visit Summary Date of Service: 06/04/20 Chief Complaint: [Dental pain] History of Present Illness: The patient is a 29 F [presents to the emergency department complaint of pain in her lower teeth that started 2 days ago. Patient complains of fullness to the gum and chin area. She denies fevers. Patient states that she has poor dentition and does not have dental coverage. She has had multiple dental extractions in the past at the [facility]. Patient has no other medical history.] Physical Examination: [HEENT-PERRLA, EOMI. Cranial nerves II through XII grossly intact. TMs clear. Mucous membranes moist. No adenopathy. Dentition-patient has multiple broken and carried to the lower teeth. Patient has some subtle fullness to the anterior gingiva along the lower incisors. There is no facial erythema or cellulitis. The submental space is soft without evidence of spread of infection. No adenopathy noted. Patient is able to touch her tongue to the roof of her mouth without difficulty. Cardiovascular-regular rate and rhythm without murmur or ectopy Lungs-clear to auscultation, chest wall stable without crepitus or subcu emphysema Abdomen-normoactive bowel sounds, soft, nontender, no rebound or rigidity, no peritoneal signs. Extremities-intact ?4, normal range of motion, normal pulses, atraumatic] Test Results: [None indicated] Emergency Department Course and Treatment: [Patient was given 1 dose of clindamycin p.o.] Treatment Plan: [Patient will be treated with clindamycin. She will take ibuprofen or Tylenol for discomfort as she states that this has been taken the edge off and does not want narcotic pain medication. Patient advised to follow-up with a dentist within next 3 to 5 days. She will be given a list of dentists in the area.] Disposition: [Discharged home in stable condition] Impression: [Dental pain secondary to dental caries and early dental abscess.] This note was generated with [employer] dictation software. It may contain incorrect words, spelling, and punctuation that were not noted in review of the chart prior to signing ED Disposition - Plan for ED Patient: Referrals: Chandrika Manrique MD [Primary Care Provider] -
--- NOTE | 2020-06-04 20:40 | ED.DEP ---
ED Disposition - Plan for ED Patient: Instructions: Dental Abscess, ED Dental Pain Prescriptions: Clindamycin HCl [Cleocin] 300 mg PO Q6H #40 capsule Prescription Printed Referrals: Chandrika Manrique MD [Primary Care Provider] - Additional Instructions: see a dentist
[2020-06-04] MEDS: Clindamycin HCl 150 MG Capsule 300 MG PO (20:57)
== END 2020-06-04 21:01 | disposition home or self-care (01) ==
LOC: ED 20:47
PROVIDERS: Emergency Provider Emergency Medicine; PCP Internal Medicine
DX: K04.7 Periapical abscess without sinus (principal); K02.9 Dental caries, unspecified; Z72.0 Tobacco use
CPT/HCPCS: 99282

== ENCOUNTER 2020-06-06 03:30 | Emergency (ER) | payer SELFPAY ==
[2020-06-06 03:34] VITALS: BP 130/81; PULSE 53; RESP 16; TEMP 36.1; O2SAT 100; BMI 29.2
[2020-06-06 03:35] VITALS: BP 130/81; PULSE 53; RESP 16; TEMP 36.1; O2SAT 100
--- NOTE | 2020-06-06 03:44 | ED.VIS.GEN ---
History of Present Illness Chief Complaint: Allergic Reaction Informant: Patient Narrative: Stated she feels he is having allergic reaction to clindamycin. She has been feeling nauseated and sleeping a lot. She was seen yesterday and started on clindamycin for a lower dental infection. She has soft tissue swelling to her chin only. She feels like she does not like the clindamycin and the way makes her feels. She has not vomited. She is taken 4 doses of clindamycin. Comes in for further evaluation. Rating her secretions well. - Past Medical History (1) Hypothyroid Status: Chronic (2) Anxiety and depression Status: Chronic (3) GERD (gastroesophageal reflux disease) Status: Chronic (4) Pneumonia Status: Resolved (5) Hypoglycemia Status: Chronic (6) Hives Status: Resolved (7) H/O emotional problems Status: Chronic (8) UTI (urinary tract infection) Status: Resolved (9) Bone fracture Status: Resolved (10) History of back problems Status: Chronic (11) Allergies Status: Chronic (12) Migraines Status: Chronic Past Medical History - Allergies and Home Meds Allergies/Adverse Reactions: Allergies vancomycin Allergy (Severe, Verified 06/04/20 20:29) Shortness of breath clindamycin Allergy (Verified 06/04/20 20:29) Shortness of breath ondansetron HCl [From Zofran (as hydrochloride)] Allergy (Verified 06/04/20 20:29) Swelling Primary Care Physician: Chandrika Manrique MD [Primary Care Provider] - Prior records reviewed: Yes Past Medical History: - - See problem list Surgical History: - - See HPI Smoking Status: Current every day smoker Alcohol: None Drugs: None Review of Systems General: Denies: Chills, Fever, Sweats Eyes: Denies: Visual changes - bilaterally, Diplopia ENT: Reports: - - Positive dental pain with chin swelling. Denies: Bilateral ear pain, Rhinorrhea, Sore throat Cardiovascular: Denies: Chest pain, Palpitations Respiratory: Denies: Dyspnea, Cough, Dyspnea on exertion Gastrointestinal: Denies: Abdominal pain, Nausea, Vomiting, Diarrhea, Melena, Hematochezia Genitourinary: Denies: Dysuria, Hematuria, Frequency Musculoskeletal: Denies: Back pain, Extremity Pain Skin: Denies: Rash, Wounds Neurological: Denies: Headache, Weakness, Numbness Physical Exam Vital Signs/Narrative: Vital Signs Temp Pulse Resp BP Pulse Ox 06/06/20 03:35 97 F L 53 L 16 130/81 H 100 06/06/20 03:34 97 F L 53 L 16 130/81 H 100 General: Well nourished, Well developed, No Acute Distress Head: Normocephalic, Atraumatic Eyes: Perrl, EOMI ENT: Moist mucous membranes, No rhinorrhea, - - Wide spread dental decay throughout her whole mouth. I cannot appreciate any dental abscess to the gumline. The bottom floor of her mouth is normal. There is no evidence of Tia's angina. Neck: Supple, Nontender, - - She has some mild soft tissue swelling to her anterior surface of her chin ensuring 3 x 3 cm with no neck swelling. The Cardiovascular: Regular rate, Regular rhythm, No murmurs Respiratory: No distress, CTA bilaterally, Chest nontender Abdomen: Soft, Nontender, Nondistended, Normal bowel sounds Back: Nontender, Normal Inspection Extremities: Nontender, No edema Skin: Normal color, No rash Neurological: Alert, Oriented x3, Cranial nerves II-XII grossly intact, Normal Strength, Normal Sensation Psychological: Normal affect, Normal Mood Diagnostic/Tx/Re-eval - Medical Decision Making Patient has soft tissue swelling of the anterior portion of her chin medially. This is from a dental infection of her lower teeth incisors. There is no evidence of Tia's angina or ANUG. Patient will ice. Switch to amoxicillin. Given Toradol injection for pain. Will be given Phenergan for home for nausea. We will follow-up as an outpatient with her dentist at the start him in clinic. Will return if she worsens. Do not feel she needs imaging at this time. ED Disposition - Plan for ED Patient: Disposition: Home or Assisted Living Diagnosis: Dental infection Instructions: ED Tooth Abscess Prescriptions: Amoxicillin 500 mg PO TID #30 tablet Prescription Printed proMETHazine tablet [Phenergan] 25 mg PO Q6H PRN PRN #10 tab PRN Reason: Nausea Prescription Printed Referrals: Felecia Camejo [NON-STAFF] -
[2020-06-06] MEDS: Ketorolac 15 MG/ML Vial IM (03:52)
[2020-06-06] MEDS: AMOXICILLIN 500 MG CAPSULE PO (03:52)
[2020-06-06 04:13] VITALS: PULSE 87; RESP 16
== END 2020-06-06 04:14 | disposition home or self-care (01) ==
LOC: ED 03:59
PROVIDERS: Emergency Provider Emergency Medicine
DX: K04.7 Periapical abscess without sinus (principal); Z79.2 Long term (current) use of antibiotics; K21.9 Gastro-esophageal reflux disease without esophagitis; F17.200 Nicotine dependence, unspecified, uncomplicated
CPT/HCPCS: 96372; 99284

== ENCOUNTER 2021-12-11 19:10 | Emergency (ER) | payer MEDICAID, SELFPAY ==
[2021-12-11 19:11] VITALS: BP 135/92; PULSE 71; RESP 18; TEMP 36.8; O2SAT 99; BMI 25.6
--- NOTE | 2021-12-11 19:54 | EDS_ITS ---
HPI History of Present Illness Chief Complaint: Allergic Reaction Detail of Chief Complaint: Patient believes she may be having allergic reaction to medication. Informant: patient Onset/Context/Timing Onset: Today Maximum Severity: Mild Narrative Narrative: 31-year-old female with History of anxiety and depression. Currently getting her teeth pulled by [facility] [employer] and [place]. States they initially had her on amoxicillin and they added Flagyl. She thinks she may be having a reaction to it because said she thought she was having tongue swelling today. No prior history. Prior similar symptoms: No Recent Illness/Hospitalization: No PFSH PFSH Medical History Allergies Anxiety and depression Bone fracture GERD (gastroesophageal reflux disease) H/O emotional problems History of back problems Hives Hypoglycemia Migraines Pneumonia UTI (urinary tract infection) Home Medications pantoprazole 40 mg tablet,delayed release 40 mg PO DAILY #14 tabs 12/22/19 [Rx Last Taken Unknown] promethazine 25 mg tablet 25 mg PO Q6H PRN PRN Nausea #10 tabs 12/22/19 [Rx Last Taken Unknown] clindamycin HCl 300 mg capsule 300 mg PO Q6H #40 CAPSULES 06/04/20 [Rx Last Taken Unknown] amoxicillin 500 mg tablet 500 mg PO TID #30 tabs 06/06/20 [Rx Last Taken Unknown] promethazine 25 mg tablet 25 mg PO Q6H PRN PRN Nausea #10 TABLETS 06/06/20 [Rx Last Taken Unknown] Allergy/AdvReac Type Severity Reaction Status Date / Time vancomycin Allergy Severe Shortness Verified 12/11/21 19:28 of breath clindamycin Allergy Shortness Verified 12/11/21 19:28 of breath ondansetron HCl Allergy Swelling Verified 12/11/21 19:28 [From Zofran (as hydrochloride)] Family History Other Alcoholism Anxiety Arthritis Cancer Depression Thyroid disorder Surgical History History of section Social History Smoking Status: Former smoker alcohol intake: current alcohol intake frequency: holidays/special occasions only Alcohol type: beer substance use type: does not use what type of physical activity do you participate in: none and walking ROS ROS ED ROS Narrative Denies. Constitutional Constitutional ED: Denies chills or fever(s) Eyes Eyes: Denies blurry vision ENT ENT ED: Denies ear pain Cardiovascular Cardiovascular: Denies chest pain Respiratory/Chest Respiratory/Chest: Denies cough or dyspnea Genitourinary Genitourinary ED: Denies dysuria or hematuria Musculoskeletal Musculoskeletal: Denies arthralgias or back pain Integumentary Denies abscess Neurologic Neurologic: Denies headache(s) Psychiatric Psychiatric: Reports anxiety Endocrine Endocrinology: Denies cold intolerance Hematologic/Lymphatic Hematologic/Lymphatic: Reports none Allergic/Immunologic Allergic/Immunologic ED: Denies mouth swelling or tongue swelling EXAM Physical Exam Narrative Exam Narrative: 29-year-old female no acute distress. Vital signs stable afebrile. Pulse ox 9 9% on room air no hypoxia. No distress. H EENT exam normal. Tongue is normal. Posterior pharynx is normal. There is no trouble breathing or swallowing. No drooling. Neck nontender. Lungs are clear. Heart regular rhythm rate about 70 no murmur. Abdomen soft nontender. Moving all 4 extremities. Neurologically she is awake and alert. Skin normal. There is no signs of any type of allergic reaction. Const Vital Signs: 12/11/21 19:11 12/11/21 19:18 Temperature 98.3 F Temperature Source Temporal Pulse Rate 71 Respiratory Rate 18 Blood Pressure 135/92 H Blood Pressure Mean 106 Pulse Ox 99 Oxygen Delivery Method Room Air Room Air Positive well nourished and well developed; Negative for obese, cachectic, contractures or unkempt General Appearance ED: well developed and NAD; Negative for unkempt, cachectic, contractures, cyanotic or diaphoretic Nutritional Appearance: Negative for cachectic or obese HEENT Reports moist mucous membranes; Denies dry mucous membranes Negative for trauma or tenderness Mouth ED: No dry mucous membranes Mouth: No dry mucous membranes Eyes PERRL and EOMs intact bilaterally General Eye ED: Negative for pale conjunctiva or scleral icterus Neck no lymphadenopathy, supple and no JVD General: Negative for tenderness Lymph Lymphatic: Negative for other Chest Wall inspection of chest normal and palpation of chest normal Chest: Negative for other Resp normal respiratory effort and clear to auscultation bilaterally Effort and Inspection: Negative for retractions Auscultation: Negative for rales, rhonchi or wheezes Cardio regular rate, regular rhythm, S1 normal heart sound, S2 normal heart sound and no murmurs Palpation: Negative for palpable S3 Rate: Negative for bradycardia Rhythm: Negative for abnormal rhythm GI normal to inspection, nondistended, normoactive bowel sounds, non-tender, non- distended and no masses Inspection: Negative for abdominal distention Auscultation: normoactive bowel sounds Palpation: soft; Negative for tender, guarding or splenomegaly Bladder / Kidney Exam: No other Back/Spine no CVA tenderness General Back: Negative for CVA tenderness Cervical Spine: Negative for cervical spine tenderness Thoracic Spine / Upper Back: Negative for thoracic spinal tenderness Lumbar Spine / Lower Back: Negative for lumbar spinal tenderness Extremity normal to inspection General Extremety ED: Negative for edema or tenderness General Extremity: Negative for edema Neuro oriented x3, CN's II-XII intact bilaterally and no sensory deficits noted Sensorium / Orientation: alert; Negative for orientation impaired, lethargic, stuporous or other Motor Exam: strength 5/5 throughout Psych mental status grossly normal Appearance: Negative for unkempt Attitude: No agitated Mood & Affect: anxious; Negative for depressed or tearful Skin no rashes or lesions noted and no wounds General Skin Exam: elasticity normal Lesions: No lesion noted Rashes: No rashes noted Trauma: Negative for abrasion Wounds: Negative for wounds noted MDM MDM MDM Narrative Medical decision making narrative: Patient with a concern of possible allergic reaction. There is no tongue or posterior pharynx swelling. There is no rash or hives. She has all of her teeth extracted except for about 3. There is no current signs of infection. She will continue the amoxicillin. Stop the Flagyl. Follow-up as needed. Discharge Plan Triage Chief Complaint: Allergic Reaction ED Provider: Diego Wilson Dx/Rx/DC Orders Clinical Impression: Anxiety, Adult general medical exam Instructions: ED Anxiety Reaction Prescriptions: No Action promethazine 25 MG tablet 25 mg PO Q6H PRN PRN (Reason: Nausea) Qty: 10 0RF pantoprazole 40 MG tablet 40 mg PO DAILY Qty: 14 0RF clindamycin HCl 300 MG capsule 300 mg PO Q6H Qty: 40 0RF amoxicillin 500 MG tablet 500 mg PO TID Qty: 30 0RF promethazine 25 MG tablet 25 mg PO Q6H PRN PRN (Reason: Nausea) Qty: 10 0RF Primary Care Provider: Care Physician,No Primary Referrals: Care Physician,No Primary [Primary Care Provider] - Activity Restrictions/Additional Instructions: Follow-up with your dentist. No signs of any allergic reaction at this time. You can continue to use the amoxicillin and the ibuprofen. Stop using the Flagyl. Follow-up with your dentist. Disposition Disposition: Home, Self Care
== END 2021-12-11 20:06 | disposition home or self-care (01) ==
LOC: ED 20:02
PROVIDERS: Emergency Provider Emergency Medicine; Visit Provider Emergency Medicine
DX: Z00.00 Encounter for general adult medical examination without abnormal findings (principal); F41.9 Anxiety disorder, unspecified; F32.A Depression, unspecified; Z87.891 Personal history of nicotine dependence
CPT/HCPCS: 99282; A4216

== ENCOUNTER 2022-05-01 05:00 | Emergency (ER) | payer MEDICAID, SELFPAY ==
[2022-05-01 05:01] VITALS: BP 129/96; PULSE 78; RESP 20; TEMP 36.2; O2SAT 100; BMI 30.2
--- NOTE | 2022-05-01 05:25 | EDS_ITS ---
HPI History of Present Illness Chief Complaint: Chest Pain Informant: patient Onset/Context/Timing Onset: Yesterday Activity at onset: gradual Timing: Continuous Quality: Positive for Tightness Location: Substernal Worsened By: Nothing Relieved By: Nothing Associated Symptoms: Positive for Nausea, Vomiting, Dyspnea, Cough, Lightheadedness and Acid Reflux; Negative for Diaphoresis, Fever or Palpitations Narrative Narrative: Patient presents with substernal chest pain that began yesterday. Patient states it came on gradually. Patient states it has been constant. Patient describes it as a tightness in the substernal area and radiates into her back between her shoulder blades. Patient states nothing makes it better nothing makes it worse. Patient admits to some nausea and vomiting with this. Patient admits to a cough and shortness of breath. Patient also admits to some lightheadedness and gastroesophageal reflux symptoms. Patient denies any fevers or chills. CVD Risk Factors: Negative for Hypertension, Diabetes, Hypercholesterolemia, Family History 1' </=55 or Smoking PE Risk Factors: Negative for Recent Travel/Surgery, Recent Immobilization, Prior DVT or PE, Cancer or OCP + Smoking + >/=35 PFSH PFSH Medical History Allergies Anxiety and depression Bone fracture GERD (gastroesophageal reflux disease) H/O emotional problems History of back problems Hives Hypoglycemia Migraines Pneumonia UTI (urinary tract infection) Home Medications NK 05/01/22 [History Last Taken Unknown] Allergy/AdvReac Type Severity Reaction Status Date / Time vancomycin Allergy Severe Shortness Verified 05/01/22 05:05 of breath clindamycin Allergy Shortness Verified 05/01/22 05:05 of breath ondansetron HCl Allergy Swelling Verified 05/01/22 05:05 [From Zofran (as hydrochloride)] Family History Other Alcoholism Anxiety Arthritis Cancer Depression Thyroid disorder Surgical History History of section Social History Smoking Status: Former smoker alcohol intake: current alcohol intake frequency: holidays/special occasions only Alcohol type: beer substance use type: does not use what type of physical activity do you participate in: none and walking ROS ROS ED Constitutional Constitutional ED: Denies chills or fever(s) Eyes Eyes: Denies blurry vision or change in vision ENT ENT ED: Denies rhinorrhea or sore throat Cardiovascular Cardiovascular: Reports chest pain; Denies palpitations Respiratory/Chest Respiratory/Chest: Reports cough and dyspnea Gastrointestinal Gastrointestinal: Reports nausea and vomiting; Denies abdominal pain Genitourinary Genitourinary ED: Reports urinary frequency; Denies dysuria or hematuria Musculoskeletal Musculoskeletal: Reports back pain; Denies neck pain Integumentary Denies abscess or rash Neurologic Neurologic: Reports headache(s); Denies weakness Allergic/Immunologic Allergic/Immunologic ED: Denies mouth swelling or urticaria EXAM Physical Exam Const Vital Signs: 05/01/22 05:01 05/01/22 05:01 05/01/22 05:34 Temperature 97.2 F L Temperature Source Temporal Pulse Rate 78 Respiratory Rate 20 H Respiratory Effort Normal Blood Pressure 129/96 H Blood Pressure Mean 107 Pulse Ox 100 Oxygen Delivery Method Room Air Room Air Positive well nourished and well developed General Appearance ED: well developed and NAD HEENT normocephalic and atraumatic Eyes PERRL and EOMs intact bilaterally Neck supple and no JVD Chest Wall Chest Narrative: There is tenderness to palpation over the sternum. There is no edema or ecchymosis. There is no bony crepitance or step-off. Resp normal respiratory effort and clear to auscultation bilaterally Effort and Inspection: Negative for respiratory distress Cardio regular rate, regular rhythm and no murmurs GI normal to inspection, nondistended, normoactive bowel sounds, soft to palpation, non-tender and non-distended Extremity normal to inspection General Extremety ED: Negative for edema or tenderness General Extremity: Negative for edema Neuro oriented x3, CN's II-XII intact bilaterally and no sensory deficits noted Sensorium / Orientation: awake and alert Motor Exam: strength 5/5 throughout Psych mental status grossly normal Heart Score History: Slightly/Non-Suspicious Age: </= 45 years Risk Factors: No Risk Factors Score: 0 MDM MDM MDM Narrative Medical decision making narrative: Differential diagnosis includes cardiac dysrhythmia, cardiac ischemia, pneumonia, pneumothorax, gastroesophageal reflux disease, pericarditis, and anxiety. Patient is PERC negative and has no PE risk factors. EKG will be obtained to assess for cardiac dysrhythmia and cardiac ischemia. CBC will be obtained to assess for leukocytosis and anemia. Basic metabolic profile will be obtained to assess for electrolyte abnormality and renal function. High- sensitivity troponin will be obtained to assess for cardiac ischemia. Lab Data Attestation: I reviewed the patient's lab results. Lab results narrative: CBC was reviewed and was within normal limits. Basic metabolic profile was rev iewed and was within normal limits. High-sensitivity troponin was reviewed and was normal. Labs: Laboratory Results - last 24 hr 05/01/22 05/01/22 05:40 05:40 WBC 10.7 RBC 4.37 Hgb 12.9 Hct 37.3 MCV 85.4 MCH 29.5 MCHC 34.6 RDW Std Deviation 37.2 RDW Coeff of Zenon 12.0 Plt Count 243 MPV 9.1 Immature Gran % (Auto) 0.300 Neut % (Auto) 59.2 Lymph % (Auto) 29.6 Hodgeman % (Auto) 8.7 Eos % (Auto) 1.8 Baso % (Auto) 0.4 Absolute Neuts (auto) 6.3 Absolute Lymphs (auto) 3.16 Nucleated RBC % 0 Sodium 138 Potassium 3.5 Chloride 105 Carbon Dioxide 26.0 Anion Gap 7 BUN 12 Creatinine 0.85 Estim Creat Clear Calc 75.15 Est GFR (MDRD) Af Amer 99 Est GFR (MDRD) Non-Af 82 BUN/Creatinine Ratio 14.1 Glucose 95 Calcium 8.9 Troponin I High Sens 4 Radiography Chest X-Ray - ED: 1 View, Read by ED Physician, Read by Radiologist and No Acute Disease Diagnostic Testing: Portable 1 view chest x-ray was obtained. On my independent interpretation, lung chinchilla are clear. There is normal cardiac silhouette. Bony thorax is normal. There is no acute process noted. Radiologist also interpreted the x- ray and agrees. EKG Initial EKG: Attestation: I personally reviewed and interpreted this EKG as follows: Interpretation: Sinus Rhythm (66) and No Acute Injury Pattern Comments: EKG was obtained. On my independent interpretation, it showed a normal sinus rhythm with a rate of 66. AR interval, QRS interval, and QTc intervals were all normal. [place] was normal. There are no acute ST or T wave changes. Prior EKG tracings: available for review Prior: Unchanged (12/22/2019) Treatment and Re-Evaluation Narrative: Patient was given aspirin here. Patient was advised of her findings. Patient was advised that this may be a viral upper respiratory infection or viral bronchitis. Patient was instructed to follow-up with her primary care physician in 5 to 7 days. Patient was instructed to take Tylenol or ibuprofen as needed for any pain or fevers. Patient was instructed to drink plenty of fluids. Patient understood and was agreeable with the plan. All questions were answered. Discharge Plan Triage Chief Complaint: Chest Pain ED Provider: Rodrick King Dx/Rx/DC Orders Clinical Impression: Viral respiratory illness, Chest pain Instructions: ED Chest Pain, Uncertain Cause, ED URI, Viral, No Abx (Adult) Prescriptions: No Action NK Primary Care Provider: Care Physician,No Primary Referrals: Rodrick Mcmanus MD [Med Staff - Certified Driver Examiner] - 5-7 Days Care Physician,No Primary [Primary Care Provider] - Disposition Disposition: Home, Self Care
--- NOTE | 2022-05-01 05:30 | RAD_ITS ---
INDICATION: chest pain EXAMINATION/TECHNIQUE: X-RAY - XR Chest 1 View AP portable. 5:44 AM COMPARISON: 05/01/2019. FINDINGS: LINES/DEVICES: None. LUNGS: No consolidation. No pneumothorax. MEDIASTINUM: Unremarkable. CARDIAC SILHOUETTE: Not enlarged. BONES AND SOFT TISSUES: No acute abnormalities. RAD/Chest 1 View (Portable) IMPRESSION: No evidence of active intrathoracic disease. Electronically Signed: Tanja Simmons MD at 6:09 EST ,
--- NOTE | 2022-05-01 05:30 | EKG12_ITS ---
Test Reason : CP Blood Pressure : / mmHG Vent. Rate : 066 BPM Atrial Rate : 066 BPM P-R Int : 160 ms QRS Dur : 080 ms QT Int : 414 ms P-R-T Axes : 061 045 052 degrees QTc Int : 434 ms Normal sinus rhythm with sinus arrhythmia Normal ECG Confirmed by PAMELA LOW, ANGIE ([id number]), editorial director ANANDA FLORES ([id number]) on 05/03/2022 9:30:52 AM Referred By: Confirmed By:ANGIE SANTIAGO MD
[2022-05-01] MEDS: Aspirin 81 MG TAB.CHEW 324 MG PO (05:42)
[2022-05-01 05:45] LABS: Absolute Lymphocyte Count 3.16 X10^3/uL (0.83-4.51); Absolute Neutrophil Count 6.3 X10^3/uL (2.0-7.7); Basophil# 0.04 X10^3/uL; Basophil% 0.4 % (0-1); Eosinophil# 0.19 X10^3/uL; Eosinophils% 1.8 % (0-5); Hematocrit 37.3 % (37-47); Hemoglobin 12.9 g/dL (12.0-15.0); Lymphocyte # 3.16 X10^3/ul (0.83-4.51); Lymphocyte % 29.6 % (19-41); Mean Corp Hgb Conc 34.6 g/dL (32-36); Mean Corpuscular Hgb 29.5 pg (27.0-32.0); Mean Corpuscular Volume 85.4 fL (81-99); Mean Platelet Vol. 9.1 fl (6.2-12.0); Monocyte# 0.93 X10^3/uL; Monocyte% 8.7 % (0-10); NRBC Flagged by Analyzer 0 % (0-5); Neutrophil # 6.32 X10^3/uL (2.7-7.7); Neutrophil % 59.2 % (47-70); Platelet Count 243 K/mm3 (150-450); RBC Distribution Width SD 37.2 fl (35.1-43.9); Red Blood Count 4.37 M/mm3 (4.2-5.4); White Blood Count 10.7 K/mm3 (4.4-11.0)
[2022-05-01 06:03] LABS: Anion Gap 7 (5-15); BUN 12 mg/dL (7-18); BUN/Creat Ratio 14.1 RATIO (10-20); Calcium,Total 8.9 mg/dL (8.5-10.1); Chloride 105 mmol/L (98-107); Creatinine, Serum 0.85 mg/dL (0.55-1.02); EST Glomerular Filtration Rate 82 mL/min (>60); Est Glom Filt Rate - Afr Amer 99 mL/min (>60); Estimated Creatinine Clearance 75.15 ml/min; Glucose 95 mg/dL (74-106); Potassium 3.5 mmol/L (3.5-5.1); Sodium Level 138 mmol/L (136-145); Troponin-I HS 4 pg/mL (3.0-54.0)
[2022-05-01 06:24] VITALS: BP 113/67; PULSE 63; RESP 18; O2SAT 100
== END 2022-05-01 06:30 | disposition home or self-care (01) ==
PROVIDERS: Emergency Provider Emergency Medicine; Visit Provider Emergency Medicine
DX: J06.9 Acute upper respiratory infection, unspecified (principal); R11.2 Nausea with vomiting, unspecified; R35.0 Frequency of micturition; Z87.891 Personal history of nicotine dependence
CPT/HCPCS: 71045; 80048; 84484; 85025; 93005; 99284; A4216

== ENCOUNTER 2022-08-02 19:05 | Emergency (ER) | payer MEDICAID, SELFPAY ==
[2022-08-02 19:05] VITALS: BP 143/84; PULSE 82; RESP 18; TEMP 36.6; O2SAT 99; BMI 30.3
--- NOTE | 2022-08-02 20:33 | EX.ED.DYSGE1 ---
HPI History of Present Illness Chief Complaint: Dizziness Narrative Narrative: 32-year-old female presenting with bilateral itching ears. She states has been ongoing for couple of days. She notes she has some seasonal allergies and has noted her some pressure behind her ears drums. She feels dizzy and describes it as the room spinning. She has associated nausea. Intermittently she has a headache. She denies any trauma. Denies any chest pain, palpitations, shortness of breath. No abdominal pain. No urinary or vaginal complaints. Concern for . [facility] Medical History Allergies Anxiety and depression Bone fracture Former smoker GERD (gastroesophageal reflux disease) H/O emotional problems History of back problems Hives Hypoglycemia Migraines Pneumonia UTI (urinary tract infection) Home Medications meclizine 25 mg tablet 25 mg PO TID PRN dizziness #30 tabs 08/02/22 [Rx Last Taken Unknown] Allergy/AdvReac Type Severity Reaction Status Date / Time vancomycin Allergy Severe Shortness Verified 08/02/22 19:07 of breath clindamycin Allergy Shortness Verified 08/02/22 19:07 of breath ondansetron HCl Allergy Swelling Verified 08/02/22 19:07 [From Zofran (as hydrochloride)] Family History Other Alcoholism Anxiety Arthritis Cancer Depression Thyroid disorder Surgical History History of section Social History Smoking Status: Former smoker alcohol intake: current alcohol intake frequency: holidays/special occasions only Alcohol type: beer substance use type: does not use what type of physical activity do you participate in: none and walking ROS ROS ED Constitutional Constitutional ED: Denies chills, fever(s) or sweats Eyes Eyes: Denies blurry vision or change in vision ENT ENT ED: Reports ear pain bilateral and other Details: Pruritic ears ; Denies sore throat Cardiovascular Cardiovascular: Denies chest pain, palpitations or racing heartbeat Respiratory/Chest Respiratory/Chest: Denies cough, dyspnea or sputum Gastrointestinal Gastrointestinal: Denies abdominal pain, constipation, diarrhea, nausea or vomiting Genitourinary Genitourinary ED: Denies dysuria, hematuria or urinary frequency Musculoskeletal Musculoskeletal: Denies arthralgias, myalgias or neck pain Integumentary Denies abscess, Abrasions or rash Neurologic Neurologic: Denies headache(s), paresthesias or weakness Psychiatric Psychiatric: Denies anxiety, depression, suicidal ideation or suicidal thoughts Endocrine Endocrinology: Denies polydipsia or polyuria EXAM Physical Exam Const Vital Signs: 08/02/22 19:05 08/02/22 20:46 08/02/22 22:00 Temperature 98 F Temperature Source Temporal Pulse Rate 82 78 Respiratory Rate 18 16 Blood Pressure 143/84 H 136/78 H Blood Pressure Mean 103 97 Pulse Ox 99 97 97 Oxygen Delivery Method Room Air Room Air Positive well nourished General Appearance ED: NAD; Negative for pallor HEENT Reports moist mucous membranes HEENT Narrative: Positive Tip-Hallpike. Nystagmus noted. TMs normal bilaterally. External auditory canals are normal bilaterally Eyes PERRL General Eye ED: Negative for pale conjunctiva Chest Wall inspection of chest normal Resp normal respiratory effort and clear to auscultation bilaterally Cardio regular rate and regular rhythm GI normal to inspection, nondistended, normoactive bowel sounds Neuro oriented x3 and CN's II-XII intact bilaterally Sensorium / Orientation: alert Psych mental status grossly normal Skin no rashes or lesions noted General Skin Exam: Negative for jaundice or pallor MDM MDM MDM Narrative Medical decision making narrative: Patient's symptoms consistent with benign positional vertigo. I am not sure why her ears itch however. She will be given meclizine and phenergan for her dizziness. I do not believe she needs any blood work or imaging. Will reevaluate the patient. Then reevaluation at 10 PM the patient is doing well. She states her dizziness is gone. Patient was given a prescription for meclizine for home. Follow-up was provided. Impression: 1. Benign positional vertigo Discharge Plan Triage Chief Complaint: Dizziness Other Complaint: Ear Problem ED Provider: Deniz Carias Dx/Rx/DC Orders Clinical Impression: Benign positional vertigo Instructions: ED BPV Vertigo Prescriptions: New meclizine 25 mg tablet 25 mg PO TID PRN (Reason: dizziness) Qty: 30 0RF Primary Care Provider: Care Physician,No Primary Referrals: Jeramie Vega MD [Med Staff - Active Staff] - 3-5 Days Care Physician,No Primary [Primary Care Provider] - Disposition Disposition: Home, Self Care
[2022-08-02] MEDS: Meclizine HCl 25 MG Tablet PO (20:43)
[2022-08-02] MEDS: proMETHazine 25 MG Tablet PO (20:45)
[2022-08-02 20:46] VITALS: O2SAT 97
[2022-08-02 22:00] VITALS: BP 136/78; PULSE 78; RESP 16; O2SAT 97
== END 2022-08-02 22:17 | disposition home or self-care (01) ==
PROVIDERS: Emergency Provider Student in an Organized Health Care Education/Training Program; Visit Provider Student in an Organized Health Care Education/Training Program
DX: H81.10 Benign paroxysmal vertigo, unspecified ear (principal); Z87.891 Personal history of nicotine dependence; R51.9 Headache, unspecified; R11.0 Nausea
CPT/HCPCS: 99283

== ENCOUNTER 2023-08-14 21:46 | Emergency (ER) | payer SELFPAY ==
[2023-08-14 21:47] VITALS: BP 142/85; PULSE 59; RESP 16; TEMP 36.4; O2SAT 100; BMI 27.4
--- NOTE | 2023-08-14 22:11 | EX.ED.DYSGE1 ---
HPI History of Present Illness Chief Complaint: Nausea/Vomiting Informant: patient Narrative Narrative: Presenting with significant nausea since yesterday. No vomiting. States had little loose stools today nonbloody. Pelvic cramping yesterday reports last week increasing breast soreness. A week ago had 2 negative home pregnancies however states 2 days ago had a positive home before the bleeding started yesterday. States using pads. No lightheaded symptoms. Reports weakness. Reports allergy to Zofran. No urinary symptoms. No fevers. She states she has normal menstrual periods last time was a month ago. States her bleeding similar to her bleeding after restart of her periods after her child 8 years ago. Prior similar symptoms: Yes PFSH PFSH Medical History (Updated 08/14/23 @ 22:17 by Dianne Erickson) Osteoporosis Former smoker Anxiety and depression GERD (gastroesophageal reflux disease) Pneumonia Hypoglycemia Hives H/O emotional problems UTI (urinary tract infection) Bone fracture History of back problems Allergies Migraines Home Medications ?Medication ?Instructions ?Recorded ?Last Taken ?Type meclizine 25 mg tablet 25 mg PO TID PRN dizziness #30 tabs 08/02/22 Unknown Rx promethazine 25 mg tablet 25 mg PO Q6H PRN PRN Nausea #10 08/14/23 Unknown Rx TABLETS Allergy/AdvReac Type Severity Reaction Status Date / Time vancomycin Allergy Severe Shortness Verified 08/14/23 21:49 of breath clindamycin Allergy Shortness Verified 08/14/23 21:49 of breath ondansetron HCl (From Zofran Allergy Swelling Verified 08/14/23 21:49 (as hydrochloride)) Family History Other Alcoholism Anxiety Arthritis Cancer Depression Thyroid disorder Surgical History History of section Social History Smoking Status: Former smoker alcohol intake: current alcohol intake frequency: holidays/special occasions only Alcohol type: beer substance use type: does not use what type of physical activity do you participate in: none and walking ROS ROS ED Constitutional Constitutional ED: Denies chills, fever(s) or sweats Eyes Eyes: Denies change in vision ENT ENT ED: Denies dysphagia or sore throat Cardiovascular Cardiovascular: Denies chest pain, leg edema, palpitations or racing heartbeat Respiratory/Chest Respiratory/Chest: Denies cough, dyspnea or dyspnea on exertion Gastrointestinal Gastrointestinal: Reports nausea; Denies abdominal pain, diarrhea or vomiting Genitourinary Genitourinary ED: Reports other Details: Pelvic pain with vaginal bleeding ; Denies dysuria, hematuria or urinary frequency Musculoskeletal Musculoskeletal: Denies back pain, extremity pain or neck pain Integumentary Denies rash or wounds Neurologic Neurologic: Denies headache(s), paresthesias or weakness EXAM Physical Exam Const Vital Signs: 08/14/23 21:47 Temperature 97.6 F L Temperature Source Temporal Pulse Rate 59 L Respiratory Rate 16 Blood Pressure 142/85 H Blood Pressure Mean 104 Pulse Ox 100 Oxygen Delivery Method Room Air Positive well nourished and well developed General Appearance ED: well developed and NAD HEENT Reports moist mucous membranes normocephalic and atraumatic Eyes EOMs intact bilaterally and conjunctivae normal General Eye ED: Yes normal appearance of both eyes Neck no lymphadenopathy and supple General: Negative for tenderness Chest Wall Chest: Negative for tenderness Resp normal respiratory effort and normal air movement Effort and Inspection: symmetric chest movement; Negative for respiratory distress Cardio regular rate, regular rhythm and no murmurs Peripheral Pulses: pulses 2+ throughout GI normal to inspection, nondistended, normoactive bowel sounds and non-tender Palpation: Negative for guarding or rebound tenderness present Narrative: Tenderness pelvic region without guarding or rebound Back/Spine no CVA tenderness and no thoracic nor lumbar tenderness Extremity normal to inspection General Extremety ED: Negative for edema or tenderness General Extremity: Negative for edema Neuro oriented x3 and no sensory deficits noted Sensorium / Orientation: awake and alert Skin no rashes or lesions noted and no wounds MDM MDM MDM Narrative Medical decision making narrative: Interventions / MDM: Differential diagnosis: Menorrhalgia, nausea Diagnosis considered but do not suspect: Ectopic however negative. My EKG interpretation: N/A Imaging independently reviewed and interpreted by myself: N/A External documents reviewed: N/A Test considered but not ordered:N/A ED course: Vital stable. Reports history of nausea. Allergy to Zofran. Discrepancies in home pregnancies. She is having vaginal bleeding with her normal menstrual cycle timing. IV will be established with her report extreme nausea. Will give fluids, IV Reglan, basic labs serum hCG will be ordered. 2300: hCG negative labs stable clinically feeling better on reevaluation. Prescription for Phenergan sent to her pharmacy. Work note given. Outpatient follow-up. All questions were answered. Re-evaluation: stable Disposition discussed with patient/family/significant other: Patient Case discussed with consulting clinician: N/A This note was generated with [employer] dictation software. It may contain incorrect words, spelling, and punctuation that were not noted in checking the note before signing. Lab Data Attestation: I reviewed the patient's lab results. Labs: Laboratory Results - last 24 hr 08/14/23 22:19 WBC 9.3 RBC 4.24 Hgb 12.8 Hct 37.3 MCV 88.0 MCH 30.2 MCHC 34.3 RDW Std Deviation 39.3 RDW Coeff of Zenon 12.3 Plt Count 247 MPV 9.7 Immature Gran % (Auto) 0.200 Neut % (Auto) 55.2 Lymph % (Auto) 35.3 Blount % (Auto) 5.9 Eos % (Auto) 3.1 Baso % (Auto) 0.3 Absolute Neuts (auto) 5.1 Absolute Lymphs (auto) 3.29 Nucleated RBC % 0 Sodium 139 Potassium 3.6 Chloride 108 H Carbon Dioxide 26.0 Anion Gap 5 BUN 10 Creatinine 0.84 Estim Creat Clear Calc 85.33 Est GFR (MDRD) Af Amer 99 Est GFR (MDRD) Non-Af 82 BUN/Creatinine Ratio 11.9 Glucose 73 L Calcium 8.9 Serum , Qual NEGATIVE Discharge Plan Triage Chief Complaint: Nausea/Vomiting ED Provider: Earnest Tovar Dx/Rx/DC Orders Clinical Impression: Menorrhagia, Nausea Instructions: ED Heavy Menstrual Bleeding Prescriptions: New promethazine 25 mg tablet 25 mg PO Q6H PRN PRN (Reason: Nausea) Qty: 10 0RF No Action meclizine 25 mg tablet 25 mg PO TID PRN (Reason: dizziness) Qty: 30 0RF Stand Alone Forms: ED Work / School Excuse Primary Care Provider: Care Physician,No Primary Referrals: Felecia Camejo [Non-Staff] - 1 Week Care Physician,No Primary [Primary Care Provider] - Activity Restrictions/Additional Instructions: Serum test negative. Labs are stable. Continue oral fluids for hydration. Phenergan as needed. Print Language: [place] Disposition Disposition: Home, Self Care
[2023-08-14] MEDS: 0.9% Normal Saline (1000mL) 1,000 ML 1000 ML IV (22:21)
[2023-08-14] MEDS: Metoclopramide 10 MG/2 ML Vial 5 MG IV (22:21)
[2023-08-14 22:48] LABS: Absolute Lymphocyte Count 3.29 X10^3/uL (0.83-4.51); Absolute Neutrophil Count 5.1 X10^3/uL (2.0-7.7); Basophil# 0.03 X10^3/uL; Basophil% 0.3 % (0-1); Eosinophil# 0.29 X10^3/uL; Eosinophils% 3.1 % (0-5); Hematocrit 37.3 % (37-47); Hemoglobin 12.8 g/dL (12.0-15.0); Lymphocyte # 3.29 X10^3/ul (0.83-4.51); Lymphocyte % 35.3 % (19-41); Mean Corp Hgb Conc 34.3 g/dL (32-36); Mean Corpuscular Hgb 30.2 pg (27.0-32.0); Mean Platelet Vol. 9.7 fl (6.2-12.0); Monocyte# 0.55 X10^3/uL; Monocyte% 5.9 % (0-10); NRBC Flagged by Analyzer 0 % (0-5); Neutrophil # 5.13 X10^3/uL (2.7-7.7); Neutrophil % 55.2 % (47-70); Platelet Count 247 K/mm3 (150-450); RBC Distribution Width CV 12.3 % (11.6-14.6); RBC Distribution Width SD 39.3 fl (35.1-43.9); Red Blood Count 4.24 M/mm3 (4.2-5.4); White Blood Count 9.3 K/mm3 (4.4-11.0)
[2023-08-14 22:57] LABS: Internal QC Validated? YES +Cl - CLEAR BKGD; Pregnancy, Serum, hCG Quali. NEGATIVE Negative
[2023-08-14 22:59] LABS: Anion Gap 5 (5-15); BUN 10 mg/dL (7-18); BUN/Creat Ratio 11.9 RATIO (10-20); Calcium,Total 8.9 mg/dL (8.5-10.1); Chloride 108 mmol/L (98-107); Creatinine, Serum 0.84 mg/dL (0.55-1.02); EST Glomerular Filtration Rate 82 mL/min (>60); Est Glom Filt Rate - Afr Amer 99 mL/min (>60); Estimated Creatinine Clearance 85.33 ml/min; Glucose 73 mg/dL (74-106); Potassium 3.6 mmol/L (3.5-5.1); Sodium Level 139 mmol/L (136-145)
[2023-08-14 23:09] VITALS: BP 124/74; PULSE 74; RESP 16; TEMP 36.6; O2SAT 97
== END 2023-08-14 23:11 | disposition home or self-care (01) ==
PROVIDERS: Emergency Provider Emergency Medicine; Visit Provider Emergency Medicine
DX: N92.0 Excessive and frequent menstruation with regular cycle (principal); R11.2 Nausea with vomiting, unspecified; Z87.891 Personal history of nicotine dependence; K21.9 Gastro-esophageal reflux disease without esophagitis
CPT/HCPCS: 80048; 84703; 85025; 90471; 96361; 96374; 99283; J7030; A4216